=== PATIENT | male | born 1965 | race Caucasian/White ===

== ENCOUNTER → 2021-02-04 13:16 | Outpatient (CLI) | payer BC, SELFPAY ==
[2021-02-04 13:30] LABS: Basophils # 0.1 K/mm3 (0-0.2); Basophils % 1.9 % (0.1-2.0); Eosinophils # 0.2 K/mm3 (0.0-0.4); Eosinophils % 3.6 % (0.1-12.0); Hematocrit 37.3 % (42.0-52.0); Hemoglobin 11.9 g/dL (14.1-18.0); Lymphocytes # 1.6 K/mm3 (0.7-4.5); Mean Corpuscular HGB Conc 31.8 g/dL (31.8-35.4); Mean Corpuscular Hemoglobin 30.7 pg (27.0-31.2); Mean Corpuscular Volume 96.4 fl (80-94); Mean Platelet Volume 8.6 fl (7.4-10.4); Monocytes # 0.5 K/mm3 (0.1-1.0); Neutrophils # 2.9 K/mm3 (1.8-7.8); Neutrophils % 54.4 % (37.0-80.0); Platelet Count 402 K/mm3 (142-424); Red Blood Count 3.87 M/mm3 (4.60-6.20); Red Cell Distribution Width 14.3 % (11.5-17.5); White Blood Count 5.3 K/mm3 (4.8-10.8)
[2021-02-04 13:40] LABS: Chloride 104 mmol/L (98-107); Sodium 138 mmol/L (136-145)
[2021-02-04 13:41] LABS: Potassium 4.8 mmoL/L (3.5-5.1)
[2021-02-04 13:43] LABS: Alanine Aminotransferase 15 U/L (12-78); Albumin/Globulin Ratio 1.9 (1.1-1.8); Alkaline Phosphatase 58 U/L (38-126); Anion Gap 15.8 mEq/L (5-15); Aspartate Amino Transferase 17 U/L (17-59); Bilirubin,Total 0.2 mg/dl (0.2-1.3); Blood Urea Nitrogen 75 mg/dl (9-20); Calcium 8.8 mg/dl (8.4-10.2); Carbon Dioxide 23 mmol/L (22.0-30.0); Chol/HDL Ratio 2.8 (1-3.5); Cholesterol 179 mg/dl (140-200); Estimated Glomerular Filt Rate 10 ml/min (>60); GFR (African American) 12 ML/MIN (>60); Globulin 2.1 g/dL (1.3-3.2); Glucose 79 mg/dl (74-100); HDL Cholesterol 64 mg/dl (40-60); Total Protein,Serum 6.1 g/dl (6.3-8.2); Triglycerides 122 mg/dl (30-150); VLDL Cholesterol 24 mg/dL (0-40)
[2021-02-04 14:09] LABS: Hemoglobin A1C 5.8 % (4.0-6.0)
[2021-02-04 14:10] LABS: Direct LDL Cholesterol 77.69 mg/dL (100-129)
== END ==
PROVIDERS: Visit Provider Family Medicine
DX: R73.09 Other abnormal glucose (principal); Z76.89 Persons encountering health services in other specified circumstances
CPT/HCPCS: 80053; 80061; 83036; 85025

== ENCOUNTER → 2021-02-23 13:43 | Outpatient (CLI) | payer BC, SELFPAY ==
[2021-02-23 14:04] LABS: Basophils # 0.1 K/mm3 (0-0.2); Basophils % 1.8 % (0.1-2.0); Eosinophils # 0.3 K/mm3 (0.0-0.4); Eosinophils % 6.7 % (0.1-12.0); Hematocrit 36.9 % (42.0-52.0); Hemoglobin 12.2 g/dL (14.1-18.0); Lymphocytes # 1.8 K/mm3 (0.7-4.5); Lymphocytes % 38.3 % (10-50); Mean Corpuscular Volume 94.2 fl (80-94); Mean Platelet Volume 8.9 fl (7.4-10.4); Monocytes # 0.4 K/mm3 (0.1-1.0); Monocytes % 7.6 % (1.7-9.3); Neutrophils # 2.2 K/mm3 (1.8-7.8); Neutrophils % 45.7 % (37.0-80.0); Platelet Count 287 K/mm3 (142-424); Red Blood Count 3.92 M/mm3 (4.60-6.20); Red Cell Distribution Width 13.8 % (11.5-17.5); White Blood Count 4.8 K/mm3 (4.8-10.8)
[2021-02-23 16:11] LABS: Intact Parathyroid Hormone 340.6 pg/mL (7.5-53.5)
[2021-02-23 16:32] LABS: Alanine Aminotransferase 14 U/L (12-78); Albumin Level 4.2 g/dl (3.5-5.0); Albumin/Globulin Ratio 1.7 (1.1-1.8); Alkaline Phosphatase 43 U/L (38-126); Anion Gap 17.4 mEq/L (5-15); Aspartate Amino Transferase 23 U/L (17-59); Bilirubin,Total 0.4 mg/dl (0.2-1.3); Calcium 9.2 mg/dl (8.4-10.2); Carbon Dioxide 22 mmol/L (22.0-30.0); Chloride 106 mmol/L (98-107); Estimated Glomerular Filt Rate 8 ml/min (>60); GFR (African American) 10 ML/MIN (>60); Globulin 2.5 g/dL (1.3-3.2); Glucose 88 mg/dl (74-100); Phosphorous 6.5 mg/dl (2.5-4.5); Potassium 4.4 mmoL/L (3.5-5.1); Sodium 141 mmol/L (136-145); Total Protein,Serum 6.7 g/dl (6.3-8.2); Uric Acid 8.4 mg/dl (3.5-8.5)
[2021-02-23 16:47] LABS: 25-OH Vitamin D, Total 32.2 ng/mL (30-100)
[2021-02-23 16:55] LABS: Blood Urea Nitrogen 95 mg/dl (9-20)
[2021-03-03 20:13] LABS: 1,25 Dihydroxy Vitamin D 29 pg/mL (.); 1,25-Dihydroxy, Vitamin D-2 <10 pg/mL (.); 1,25-Dihydroxy, Vitamin D-3 29 pg/mL (.)
== END ==
PROVIDERS: Visit Provider Family Medicine
DX: N17.9 Acute kidney failure, unspecified (principal); I10 Essential (primary) hypertension; E55.9 Vitamin D deficiency, unspecified
CPT/HCPCS: 80053; 82306; 82652; 83970; 84100; 84550; 85025

== ENCOUNTER → 2021-03-02 06:45 | Outpatient (CLI) | payer SELFPAY ==
--- NOTE | 2021-03-02 06:47 | CT_ITS ---
PROCEDURE: CT HEART W CALCIUM SCORE CLINICAL HISTORY: htn/abnl ecg COMPARISON: No exams were available for comparison TECHNIQUE: Axial images obtained with sagittal and coronal reformats. All CT scans at the facility use one or more dose reduction, viz: automated exposure control, ma/kV adjustment per patient size (including targeted exams where dose is matched to indication, i.e. head), or iterative reconstruction technique. FINDINGS: Coronary artery calcium score is 0. No identifiable calcific atherosclerotic plaque with very low cardiovascular disease risk There is minimal thickening of the pericardium anteriorly. There is some scarring or atelectatic change in right lower lobe medially. IMPRESSION: No identifiable calcific atherosclerotic plaque with very low cardiovascular disease risk Dictated by: Austen Jean MD 03/03/2021 19:56 Austen Jean MD in [place] 03/03/2021 19:56
== END ==
PROVIDERS: PCP Family Medicine; Visit Provider Internal Medicine Cardiovascular Disease
DX: Z13.6 Encounter for screening for cardiovascular disorders (principal); I11.9 Hypertensive heart disease without heart failure; N19 Unspecified kidney failure; R60.9 Edema, unspecified
CPT/HCPCS: 75571

== ENCOUNTER → 2021-03-02 06:50 | Outpatient (CLI) | payer BC, SELFPAY ==
--- NOTE | 2021-03-02 | CA_ITS ---
APPROVED REPORT Exam: Pharmacologic Technologist: Rose Mary Yarbrough, Ht: 4 ft 11 in Wt: 198 lbs BSA: 1.84 m2 HR: 81 bpm BP: 141/86 mmHg Rhythm: NSR, RBBB Medical History Medical History: HTN Medications: Amlodipine,,,,, Carvedilol,,,,, TorSEMIDE,,,,, CaKITRIOL,,,,, Allergies: CODEINE Cardiac Risk Factors: HTN Stress Test Details Test: LEXISCAN HR Resting HR: 81 bpm Max Heart Rate (APMHR): 165.332961 bpm Max HR Achieved: 100 bpm Target HR (85% APMHR): 140.776914 bpm % of APMHR: 60.61 Recovery HR: 95 bpm BP Resting BP: 141/86 mmHg Max BP: 144/86 mmHg Recovery BP: 144.0/86.0 mmHg ECG Resting ECG: NSR, RBBB Clinical Exercise duration: 04:02 min Highest Stage Achieved: Stress ECG Conclusion PT HAD SOA, LIGHTHEADED, MALAISE, NO CP. NON-DIAGNOSTIC LEXISCAN STRESS. MYOVIEW IMAGES REPORTED SEPARATELY. Electronically signed by : Nishant Pollard MD 03/03/2021 06:30:44
--- NOTE | 2021-03-02 06:51 | NM_ITS ---
APPROVED REPORT Exam: Nuclear Stress Test Indication: Chest pain, Abnormal EKG, SOB, Fatigue, HTN Patient Location: Outpatient Stress Tech: Rose Mary Yarbrough [place] Tech:Maggie Burton, ARRT, RT (R)(N) Ht: 5 ft 9 in Wt: 199 lbs HR: 81 bpm BP: 141/86 mmHg BSA: 2.06 m2 BMI: 29.3 History: Chest pain, Abnormal EKG, SOB, Fatigue, HTN Procedure: Patient received a 0.4 mg of intravenous Lexiscan, resting heart rate 81 bpm, resting blood pressure 141/86 mmHg, with Lexiscan maximum heart rate achived was 100 bpm which is Less than 85 % of the maximum predicted heart rate and blood pressure was 144/86 mmHg. With Lexiscan, patient denied any complaint of chest pain. Electrocardiogram Resting electrocardiogram shows sinus rhythm right bundle branch block, with Lexiscan there is less than 1.[address] segment depression noted from the baseline EKG. The EKG portion of the Lexiscan is nondiagnostic. Cardiac Stress and Resting SPECT Images: Cardiac Stress and Resting SPECT images were obtained using technetium 99m Myoview 29.8 mCi stress and 9.86 mCi at rest. Gated SPECT analysis of segmental wall motion and calculation of the ejection fraction also done. Cardiac stress and resting SPECT images show reversible ischemia involving the inferior and posterior wall. Computer derived ejection fraction is 43% with moderate inferior and posterior wall hypokinesis, right ventricle is normal size and contractility. Conclusion: 1. The EKG portion of the Lexiscan is nondiagnostic. 2. Scintigraphic evidence of reversible ischemia involving the inferior and posterior wall, computer derived ejection fraction is 43% with segmental wall motion abnormality described above, right ventricle is normal size and contractility. 3. Abnormal Lexiscan Myoview study. Electronically signed by : Nishant Pollard MD 03/03/2021 06:44:00
--- NOTE | 2021-03-02 06:51 | CA_ITS ---
APPROVED REPORT Director Of Accreditation: CORINE Laterality: Bilateral Study Quality: Good Indications: abnl ecg /htn, Renal failure Doppler Spectral Velocity Analysis ECA (R) 109.00/22.60 cm/s ECA (L) 76.60/19.60 cm/s dICA (R) 115.00/36.90 cm/s dICA (L) 70.30/34.60 cm/s Gretel (R) 77.30/42.70 cm/s Gretel (L) 60.90/28.70 cm/s pICA (R) 79.20/17.00 cm/s pICA (L) 31.20/13.20 cm/s dCCA (R) 68.30/27.50 cm/s dCCA (L) 77.40/30.60 cm/s pCCA (R) 90.40/21.10 cm/s pCCA (L) 75.80/24.00 cm/s Vert (R) 36.10/13.40 cm/s Vert (L) 55.40/17.70 cm/s ICA/CCA 1.20 ICA/CCA 0.93 Findings Duplex evaluation demonstrates stenosis of the right proximal internal carotid artery <20% with PSV <140 cm/sec, EDV <100 cm/sec, and IC/CC Ratio <4.0. Duplex evaluation demonstrates stenosis of the left proximal internal carotid artery <20% with PSV <140 cm/sec, EDV <100 cm/sec, and IC/CC Ratio <4.0. Duplex evaluation demonstrates antegrade flow of the bilateral Vertebral Arteries. Conclusion Duplex evaluation demonstrates stenosis of the right proximal internal carotid artery <20% with PSV <140 cm/sec, EDV <100 cm/sec, and IC/CC Ratio <4.0. Duplex evaluation demonstrates stenosis of the left proximal internal carotid artery <20% with PSV <140 cm/sec, EDV <100 cm/sec, and IC/CC Ratio <4.0. Duplex evaluation demonstrates antegrade flow of the bilateral Vertebral Arteries. Incidental finding of multiple small thyroid nodules and a 4cm left throid solid nodule with small central cystic areas, consider dedicated thyroid ultrasound Electronically signed by : Austen Jean MD 03/03/2021 18:57:18
--- NOTE | 2021-03-02 09:30 | HMH.ITSHM ---
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 []TORSEMIDE CARVEDILOL CALCITRIOL AMLODIPINE
== END ==
PROVIDERS: PCP Family Medicine; Visit Provider Internal Medicine Cardiovascular Disease
DX: R42 Dizziness and giddiness (principal); I50.9 Heart failure, unspecified; R94.31 Abnormal electrocardiogram [ECG] [EKG]; I11.0 Hypertensive heart disease with heart failure; N19 Unspecified kidney failure; R60.9 Edema, unspecified
CPT/HCPCS: 78452; 93017; 93880; A9502; J2785

== ENCOUNTER → 2021-03-05 10:33 | Outpatient (CLI) | payer BC, SELFPAY | PROVIDERS: PCP Family Medicine; Visit Provider Internal Medicine Cardiovascular Disease | DX: G47.33 Obstructive sleep apnea (adult) (pediatric) (principal); I11.9 Hypertensive heart disease without heart failure | CPT/HCPCS: 95806 ==

== ENCOUNTER → 2021-03-23 07:59 | Outpatient (CLI) | payer BC, SELFPAY ==
--- NOTE | 2021-03-23 07:59 | CA_ITS ---
APPROVED REPORT EXAM: Comprehensive 2D, Doppler, and color-flow Echocardiogram Dye Box Operator: Lizzette Travis [facility], S Ht: 5 ft 9 in Wt: 200lbs BSA: 2.07 BP: 128/88 mmHg Indications: Abnormal ECG, Congestive Heart Failure, Fatigue, Cardiomyopathy EF 35-40% echo from [facility] 2D Dimensions IVSd 1.32 cm LVEF (Visual) 60.30 % PWd 1.18 cm LVDd 5.27 cm LVDs 3.56 cm M-Mode Dimensions RVDd 2.66 cm (0.9-2.6) LVDd 6.20 cm (3.5-5.7) LVDs 4.52 cm (3.5-5.7) IVSd 1.06 cm (0.6-1.1) PWd 1.18 cm (0.6-1.1) EF (Teich) 51.90% FS 27.10% EDV (Teich) 194.00 mL ESV (Teich) 93.40 mL Conclusion 1. Limited echocardiogram was performed, normal left ventricular size, mild concentric left ventricular hypertrophy, visually estimated ejection fraction 55% with no regional wall motion abnormality. 2. No significant pericardial effusion noted. 3. Inferior vena cava is normal size with normal inspiratory collapse. Electronically signed by : Nishant Pollard MD 03/23/2021 19:09:49
[2021-03-23 09:09] LABS: Chloride 104 mmol/L (98-107); Sodium 144 mmol/L (136-145)
[2021-03-23 09:10] LABS: Potassium 3.9 mmoL/L (3.5-5.1)
[2021-03-23 09:12] LABS: Blood Urea Nitrogen 74 mg/dl (9-20); Estimated Glomerular Filt Rate 10 ml/min (>60); GFR (African American) 12 ML/MIN (>60)
[2021-03-23 09:13] LABS: Anion Gap 13.9 mEq/L (5-15); Calcium 9.5 mg/dl (8.4-10.2); Carbon Dioxide 30 mmol/L (22.0-30.0); Glucose 103 mg/dl (74-100)
== END ==
PROVIDERS: PCP Family Medicine; Visit Provider Internal Medicine Cardiovascular Disease
DX: R42 Dizziness and giddiness (principal); I42.9 Cardiomyopathy, unspecified; I45.10 Unspecified right bundle-branch block; I50.9 Heart failure, unspecified; I11.0 Hypertensive heart disease with heart failure; N17.9 Acute kidney failure, unspecified; R60.9 Edema, unspecified; R94.31 Abnormal electrocardiogram [ECG] [EKG]; N19 Unspecified kidney failure
CPT/HCPCS: 36415; 80048; 86850; 93306

== ENCOUNTER → 2021-04-12 09:18 | Outpatient (CLI) | payer BC, SELFPAY ==
--- NOTE | 2021-04-12 09:18 | US_ITS ---
PROCEDURE: US THYROID CLINICAL INDICATION: 4cm Left solid nodule COMPARISON: No exams were available for comparison FINDINGS: Right lobe: 4.5 x 1.5 x 2.1 cm. Five mm hypoechoic well defined nodule upper pole posteriorly. 6 mm spongiform nodule mid aspect of the right lobe. 6 mm spongiform nodule right lower pole. Left lobe: 5.5 x 3.6 x 5.2 cm. Five by 3 x 5 cm nodule in the left lobe comprising nearly all the left lobe of the thyroid gland. This nodule is mixed cystic and solid, mostly solid containing some small cystic areas. The nodule is isoechoic to thyroid tissue. There is smooth margins. The nodule is wider than tall without obvious calcifications. Isthmus: Unremarkable Additional findings: IMPRESSION: Dominant left-sided thyroid nodule at 5 x 5 cm. This nodules probably benign. However, considering the size, would suggest either short-term follow-up in 6 months or ultrasound-guided FNA for confirmation. Dictated by: Austen Jean MD 04/12/2021 16:47 Austen Jean MD in [place] 04/12/2021 16:47
== END ==
PROVIDERS: PCP Family Medicine; Visit Provider Family Medicine
DX: E04.1 Nontoxic single thyroid nodule (principal)
CPT/HCPCS: 76536

== ENCOUNTER → 2021-06-01 13:35 | Outpatient (CLI) | payer BC, SELFPAY ==
[2021-06-01 15:07] LABS: Thyroid Stimulating Hormone 1.76 uIU/mL (0.465-4.68)
== END ==
PROVIDERS: Visit Provider Otolaryngology
DX: E04.9 Nontoxic goiter, unspecified (principal)
CPT/HCPCS: 36415; 84443

== ENCOUNTER → 2021-06-07 08:50 | Outpatient (CLI) | payer BC, SELFPAY ==
--- NOTE | 2021-06-07 08:51 | US_ITS ---
FINAL REPORT CLINICAL HISTORY: .fna lt thyroid nodule performed by Christina nelson FINDINGS: ULTRASOUND GUIDED THYROID BIOPSY HISTORY: Left thyroid nodule/mass. ATTENDING PHYSICIAN: Dr. Coe PHYSICIAN [employer] COACH: Christina Watkins PA-C TECHNIQUE: Informed consent was obtained from the patient. A timeout procedure was performed prior to beginning. Limited sonographic evaluation of thyroid gland was performed to localize lesion of interest. The neck was prepped in a routine sterile fashion and locally anesthetized with 1% lidocaine. FNA was performed with 25-gauge needle under direct sonographic visualization. 4 passes of the left thyroid mass were made. Cytology is pending. Procedure was well tolerated. CONCLUSION: 1. Technically successful thyroid fine needle aspiration. Reviewed, Interpreted and Dictated by Matt Coe MD Transcribed by Christina Watkins PA-C Authenticated by Matt Coe MD on 06/07/2021 12:17:48 PM [facility]
== END ==
PROVIDERS: PCP Family Medicine; Visit Provider Otolaryngology
DX: E04.9 Nontoxic goiter, unspecified (principal)
CPT/HCPCS: 10005; 76536

== ENCOUNTER → 2021-06-09 21:20 | Outpatient (CLI) | payer BC, SELFPAY | PROVIDERS: PCP Family Medicine; Visit Provider Nurse Practitioner Family | DX: G47.33 Obstructive sleep apnea (adult) (pediatric) (principal); R06.83 Snoring | CPT/HCPCS: 95810 ==

== ENCOUNTER → 2021-06-29 11:17 | Outpatient (CLI) | payer BC, SELFPAY | PROVIDERS: PCP Family Medicine; Visit Provider Internal Medicine Gastroenterology | DX: Z01.812 Encounter for preprocedural laboratory examination (principal); Z11.52 Encounter for screening for COVID-19; Z12.11 Encounter for screening for malignant neoplasm of colon | CPT/HCPCS: C9803; U0003; U0005 ==

== ENCOUNTER 2021-07-01 09:06 | Day surgery (SDC) | payer BC, SELFPAY ==
[2021-06-29 09:20] VITALS: BMI 32.1
[2021-07-01] VITALS (7 sets, daily range): BP systolic 96–120; BP diastolic 64–84; PULSE 72–87; RESP 16–18; TEMP 36.3–36.8; O2SAT 93–98
--- NOTE | 2021-07-01 09:46 | P.PN_ITS ---
[facility] Anesthesia Checklist - Patient Identification Patient Identification: Arm Band - Structural Data Admitted From: Home Planned Operative Procedure/s: Colonoscopy Consent for Planned Operative Procedure(s) Verified: Yes - NPO Status Verified Time NPO: 05:30 (Prep) - Airway Assessment C-Spine Mobility Assessed: Yes TMJ Mobility Assessed: Yes Dentition: Poor Dentition (All loose. Patienmt understands risk of damage) - Neurological Assessment Level of Consciousness: Awake Hx Seizures: No Numbness or tingling in extremities: No - Anesthesia Plan Anesthesia Risk discussed: Yes Anesthesia Plan: Verified ASA Class: III Anesthesia Type: MAC [facility] History I have reviewed the patient's past medical history: Yes Medical History: Reports:: Anxiety, Cancer (skin/ thyroid), Cardiomyopathy, Congestive Heart Failure, Coronary Artery Disease, Hypertension, Myocardial Infarction, Renal Disease, Renal Insufficiency Denies:: Diabetes Mellitus Type 1, Diabetes Mellitus Type 2, Internal Pacemaker, MRSA *Have you ever received a pneumonia vaccine?: Yes *Have you received a flu vaccine this season?: Yes Other Medical History: Reports: Arthritis, Sinus Problems Anesthesia experience/problems:: None Laterality Cases: Right: Arthroscopy Knee Other Surgeries: Yes: No Previous Surgery, Other. No: Pacemaker Amputation: No Fractures: No - *Social History Last grade of school completed: 11th or 12th Smoking Status: Never smoker Tobacco Type: cigarettes Alcohol Intake: never Substance Use Type: denies use *Occupational Status:: unemployed Housing: house Household Members: spouse *Travel in the last 8 weeks: None - Psychiatric History Pschychiatric History:: Reports:: Anxiety Family Hx:: Kidney Disease, Hypertension, Coronary Artery Disease, Diabetes
--- NOTE | 2021-07-01 10:49 | HMH.SCOPE ---
- Procedure: Date: 07/01/21 Patient Date of :: 1965 Procedure Performed:: Screening colonoscopy Indications:: Colon cancer screening Performing Provider:: Radha Wayne MD Referring Provider:: Denis Jackson Sedation:: Propofol Procedure:: After placing the patient in the left lateral decubitus position, the colonoscopy was gently inserted into the rectum and under direct visualization advanced to the cecum which was identified by transillumination in the right lower quadrant, identification of the ileocecal valve, appendiceal orifice, and cecal strap. Color, texture, mucosa, and anatomy of the colon were carefully examined with the scope. Findings:: Anal canal: normal Rectum: normal Sigmoid colon: 1 cm sigmoid polyps, removed with hot snare. Descending colon: normal without polyps or inflammatory changes Splenic flexure: normal Transverse colon: normal without polyps or inflammatory changes Hepatic flexure: normal Ascending colon: normal without polyps or inflammatory changes Cecum: Large 3+cm villous mass arising from the ileocecal valve region noted. Multiple biopsies obtained Terminal ileum: not visualized Impression: Large ileocecal mucosal mass Adenomatous sigmoid polyp Specimens:: Biopsies from the cecal mass Sigmoid polyp Recommendations:: Surgical resection of the cecal mass Repeat colonoscopy exam in ONE year after resection. Complications:: None Estimated blood obtained (mL): 0 Comment:: Dr. Olivia Jackson notified of the preliminary findings
== END 2021-07-01 11:35 | disposition home or self-care (01) ==
LOC: OUTP 09:09
PROVIDERS: PCP Family Medicine; Visit Provider Internal Medicine Gastroenterology
PROC: 0DJD8ZZ Inspection of Lower Intestinal Tract, Via Natural or Artificial Opening Endoscopic (ICD-10-PCS; CPT 45378; principal; 2021-07-01 10:30)
DX: Z12.11 Encounter for screening for malignant neoplasm of colon (principal); K63.5 Polyp of colon; I25.10 Atherosclerotic heart disease of native coronary artery without angina pectoris; I10 Essential (primary) hypertension; I25.2 Old myocardial infarction; F41.9 Anxiety disorder, unspecified; Z85.850 Personal history of malignant neoplasm of thyroid; Z85.828 Personal history of other malignant neoplasm of skin; N28.9 Disorder of kidney and ureter, unspecified; M19.90 Unspecified osteoarthritis, unspecified site; Z83.3 Family history of diabetes mellitus; Z82.49 Family history of ischemic heart disease and other diseases of the circulatory system; Z84.1 Family history of disorders of kidney and ureter
CPT/HCPCS: 45385; 45380

== ENCOUNTER → 2021-07-30 11:05 | Outpatient (CLI) | payer MEDICARE, BC, SELFPAY | PROVIDERS: Visit Provider Surgery | DX: Z01.812 Encounter for preprocedural laboratory examination (principal); Z20.822 Contact with and (suspected) exposure to COVID-19 | CPT/HCPCS: C9803; U0003; U0005 ==

== ENCOUNTER → 2021-10-27 15:04 | Outpatient (CLI) | payer MEDICARE, BC, SELFPAY ==
--- NOTE | 2021-10-27 15:05 | US_ITS ---
FINAL REPORT CLINICAL HISTORY: hx goiter FINDINGS: THYROID ULTRASOUND The right lobe of the thyroid measures 4.4 x 2.2 x 1.5 cm. The left lobe of the thyroid measures 5.8 x 5.0 x 3.3 cm. In the right lobe of the thyroid are 3 TI-RADS 4 solid hypoechoic nodules. Nodule 1 on the right measures 3 x 4 x 3 mm. Nodule 2 on the right measures 5 x 5 x 4 mm. Nodule 3 on the right measures 6 x 6 x 4 mm. Dominant left lobe nodule is predominantly solid and isoechoic measuring 48 x 49 x 32 mm consistent with a TI-RADS 3. This is stable as compared to prior exam dated April 12, 2021. IMPRESSION: Stable nodules as described. No follow-up recommended. Reviewed, Interpreted and Dictated by Antelmo Alvarenga III, MD Transcribed by Oscar Lombardi Authenticated and [facility]
== END ==
PROVIDERS: PCP Family Medicine; Visit Provider Otolaryngology
DX: E04.1 Nontoxic single thyroid nodule (principal)
CPT/HCPCS: 76536

== ENCOUNTER → 2022-01-28 14:56 | Outpatient (CLI) | payer OTHER, BC, SELFPAY ==
[2022-01-30 09:09] LABS: CEA 2.6 ng/mL (0.0-4.7)
== END ==
PROVIDERS: PCP Family Medicine; Visit Provider Family Medicine
DX: C18.9 Malignant neoplasm of colon, unspecified (principal)
CPT/HCPCS: 36415; 82378

== ENCOUNTER → 2022-05-17 12:36 | Outpatient (CLI) | payer MEDICARE, BC, SELFPAY ==
--- NOTE | 2022-05-17 12:37 | US_ITS ---
FINAL REPORT CLINICAL HISTORY: hx nodules COMPARISON: March 2021; October 2021 FINDINGS: THYROID ULTRASOUND The right lobe of the thyroid measures 5.1 x 1.9 x 1.3 cm. The left lobe of the thyroid measures 6.4 x 5.4 x 3.9 cm. The parenchyma shows normal echogenicity. There is a dominant isoechoic mass in the left lobe of the thyroid measuring 5.4 x 5.0 x 3.4 cm that is unchanged as compared to the prior exam. There are subcentimeter hypoechoic nodules in the right lobe of the thyroid compatible with TI-RADS 4 that are unchanged. IMPRESSION: Stable dominant left thyroid mass compatible with TI-RADS 3 with stable subcentimeter right TI-RADS 4 nodules. Recommend 12 month follow-up presuming the left lobe mass has not had prior FNA. Reviewed, Interpreted and Dictated by Hilario Ren MD Transcribed by Oscar Lombardi Authenticated and [facility]
== END ==
PROVIDERS: PCP Family Medicine; Visit Provider Otolaryngology
DX: E04.1 Nontoxic single thyroid nodule (principal)
CPT/HCPCS: 76536

== ENCOUNTER → 2022-05-24 14:05 | Outpatient (CLI) | payer MEDICARE, BC, SELFPAY ==
--- NOTE | 2022-05-24 14:05 | CT_ITS ---
FINAL REPORT TECHNIQUE: Axial images were obtained from the lung apex to the mid abdomen by computed tomography. Coronal reformatted images were obtained. This study was performed with techniques to keep radiation doses as low as reasonably achievable, (ALARA). Individualized dose reduction techniques using automated exposure control or adjustment of mA and/or kV according to the patient''s size were employed. CLINICAL HISTORY: . transplant clearance FINDINGS: There is a left thyroid mass measuring 5 cm. There is no axillary adenopathy. There is no hilar or mediastinal adenopathy. Heart size is normal. There is no pericardial or pleural effusion. Images through the upper abdomen show a partially collapsed gallbladder. There is a small hyperdense cyst or calcification in the upper pole the left kidney. There is mild scarring. No suspicious infiltrate or nodule is identified. IMPRESSION: No acute process. Small hyperdense cyst or calcification in the upper pole the left kidney. 5 cm left thyroid mass. Consider thyroid ultrasound although favor this to represent goiter. Reviewed, Interpreted and Dictated by Antelmo Alvarenga III, MD Transcribed by Oscar Lombardi Authenticated and [facility]
== END ==
PROVIDERS: PCP Family Medicine; Visit Provider Family Medicine
DX: I50.9 Heart failure, unspecified; I11.0 Hypertensive heart disease with heart failure
CPT/HCPCS: 71250

== ENCOUNTER 2022-06-22 09:45 | Day surgery (SDC) | payer MEDICARE, BC, SELFPAY ==
[2022-05-31 14:02] VITALS: BMI 33.4
[2022-06-22] VITALS (7 sets, daily range): BP systolic 101–142; BP diastolic 55–93; PULSE 65–79; RESP 15–18; TEMP 36.8–37; O2SAT 91–98
--- NOTE | 2022-06-22 10:07 | P.PN_ITS ---
[facility] Disclaimer: The information contained in this section may have been updated after the patient was seen, as this information can be updated by other users. Medical History Abnormal EKG Cardiomyopathy Dizziness History of colon cancer Right bundle branch block Status post peritoneal dialysis Thyroid nodule Surgical History History of colon surgery Hx of knee surgery Family History Other Family history of diabetes mellitus type II Family history of hypertension Peritoneal dialysis catheter in place Social History Smoking Status: Former smoker alcohol intake: never substance use type: denies use current occupational status: disabled Travel in the last 8 weeks: Inside the [place] household members: spouse housing: house lives independently: Yes marital status: education level: high school service: Yes caffeine: Yes special jonna needs: No agree to transfusion: No do you feel safe at home: Yes victim of physical abuse: No victim of emotional abuse: No victim of sexual abuse: No would you like helpful sources: No [facility] Anesthesia Checklist Patient Identification Patient Identification: Arm Band and Verbal (Name & ) Structural Data Admitted From: Home Planned Operative Procedure/s: Colonoscopy Consent for Planned Operative Procedure(s) Verified: Yes NPO Status Verified Time NPO: 00:00 Airway Assessment C-Spine Mobility Assessed: Yes TMJ Mobility Assessed: Yes Dentition: Poor Dentition Neurological Assessment Level of Consciousness: Awake Hx Seizures: No Numbness or tingling in extremities: No Anesthesia Plan Anesthesia Risk discussed: Yes Anesthesia Plan: Verified ASA Class: IV Anesthesia Type: MAC
--- NOTE | 2022-06-22 10:47 | P.PCN_ITS ---
Procedure: Date: 06/22/22 Patient Date of :: 1965 Procedure Performed:: Colonoscopy Indications:: The patient had a colonoscopy 1 year ago that reported to have a ileocecal valve mass. The patient had surgical resection at the [facility]. The patient reports that the mass lesion was found to be colon cancer. The patient has ESRD and is being listed for renal transplant Performing Provider:: Ronald Johnson MD Referring Provider:: Denis Spicer MD Sedation:: See RN records Procedure:: After placing the patient in the left lateral decubitus position, the colonoscopy was gently inserted into the rectum and under direct visualization advanced to the surgical anastamosis. Color, texture, mucosa, and anatomy of the colon were carefully examined with the scope. Findings:: Anal canal: normal Rectum: normal Sigmoid colon: Diverticulosis. Four polyps ranging 5-10 mm in size. Removed with cold snare and hot snare polypectomy. Descending colon: normal without polyps or inflammatory changes Splenic flexure: normal Transverse colon: Polyp 5 mm in size. Removed with hot snare polypectomy Surgical changes of right hemicolectomy Impression: Polyps of sigmoid colon and transverse colon Diverticulosis Surgical changes of right hemicolectomy Recommendations:: Await pathology results Repeat colonoscopy in 1 year Complications:: None Estimated blood obtained (mL): 0
== END 2022-06-22 11:27 | disposition home or self-care (01) ==
PROVIDERS: PCP Family Medicine; Visit Provider Internal Medicine
PROC: 0DJD8ZZ Inspection of Lower Intestinal Tract, Via Natural or Artificial Opening Endoscopic (ICD-10-PCS; CPT 45378; principal; 2022-06-22 11:00)
DX: Z12.11 Encounter for screening for malignant neoplasm of colon (principal); D12.3 Benign neoplasm of transverse colon; D12.5 Benign neoplasm of sigmoid colon; N18.6 End stage renal disease; K57.30 Diverticulosis of large intestine without perforation or abscess without bleeding; Z79.899 Other long term (current) drug therapy
CPT/HCPCS: 45385; 88305; J2704

== ENCOUNTER → 2022-09-05 15:02 | Outpatient (CLI) | payer MEDICARE, BC, SELFPAY ==
[2022-09-07 11:30] LABS: CEA 3.2 ng/mL (0.0-4.7)
== END ==
PROVIDERS: PCP Family Medicine; Visit Provider Family Medicine
DX: Z85.048 Personal history of other malignant neoplasm of rectum, rectosigmoid junction, and anus (principal)
CPT/HCPCS: 36415; 82378

== ENCOUNTER → 2022-09-13 10:26 | Outpatient (POV) | payer MEDICARE, BC, SELFPAY | PROVIDERS: Visit Provider Dermatology | DX: Z00.00 Encounter for general adult medical examination without abnormal findings (principal) ==

== ENCOUNTER → 2022-11-09 12:40 | Outpatient (CLI) | payer MEDICARE, BC, SELFPAY ==
--- NOTE | 2022-11-09 12:40 | US_ITS ---
FINAL REPORT CLINICAL HISTORY: follow up on nodules COMPARISON: 05/17/2022 FINDINGS: Limited sonographic images of the thyroid were obtained. The right lobe of the thyroid measures 4.7 x 1.3 x 2.1 cm. There is a stable, solid and isoechoic nodule measuring 5 x 3 x 3 mm consistent with TI-RADS category 3. There is a stable, solid and hypoechoic nodule measuring 4 x 4 x 4 mm consistent with TI-RADS category 4. In addition, there is a stable solid and hypoechoic nodule measuring 7 x 7 x 5 mm consistent with TI-RADS category 4. The left lobe of the thyroid measures 5.9 x 4.4 x 6.0 cm. There is a dominant mass measuring 54 x 58 x 33 mm, previously measured 50 x 50 x 33 mm. This has probably not significantly changed and appears mostly solid and isoechoic consistent with TI-RADS category 3. Other small nodules are visually stable. The isthmus measures 1.08 cm. IMPRESSION: Probably stable left lobe mass. Recommend ultrasound-guided FNA if not already performed. Follow-up ultrasound may also be helpful. Reviewed, Interpreted and Dictated by Antelmo Alvarenga III, MD Transcribed by Taylor Garcia Authenticated and [facility]
== END ==
PROVIDERS: PCP Family Medicine; Visit Provider Otolaryngology
DX: E04.1 Nontoxic single thyroid nodule (principal)
CPT/HCPCS: 76536

== ENCOUNTER → 2022-12-05 07:40 | Outpatient (CLI) | payer MEDICARE, BC, SELFPAY ==
--- NOTE | 2022-12-05 07:40 | US_ITS ---
FINAL REPORT CLINICAL HISTORY: left thyroid fna -- Catarino SMITH FINDINGS: ULTRASOUND GUIDED THYROID BIOPSY HISTORY: Left thyroid mass. TECHNIQUE: Informed consent was obtained from the patient. A timeout procedure was performed prior to beginning. Limited sonographic evaluation of thyroid gland was performed to localize lesion of interest. The neck was prepped in a routine sterile fashion and locally anesthetized with 1% lidocaine. FNA was performed with 25-gauge needle under direct sonographic visualization. 4 passes were made. Cytology is pending. Procedure was well tolerated. CONCLUSION: 1. Technically successful thyroid fine needle aspiration of a left thyroid mass. Reviewed, Interpreted and Dictated by Hilario Ren MD Transcribed by Christina Watkins PA-C Authenticated and [facility]
== END ==
PROVIDERS: PCP Family Medicine; Visit Provider Nurse Practitioner
DX: E04.1 Nontoxic single thyroid nodule (principal)
CPT/HCPCS: 10005; 76536; 88173; 88305

== ENCOUNTER 2023-06-21 12:17 | Outpatient (CLI) | payer MEDICARE, SELFPAY ==
--- NOTE | 2023-06-21 12:17 | US_ITS ---
FINAL REPORT CLINICAL HISTORY: thyroid nodules COMPARISON: 11/09/2022 FINDINGS: THYROID ULTRASOUND: The right lobe of the thyroid gland measures 4.5 x 1.3 x 2.3 cm in size. There are scattered nodules present, all less than 1 cm in size, nonspecific. None of these are significantly changed since the prior MRI of October 2022. The left lobe of the thyroid measures 5.8 x 4 x 5.6 cm in size. There is a dominant mass in the lower pole of the left lobe of the thyroid measuring 4.8 x 3.5 x 4.7 cm in size. This i mass is cystic and solid, isoechoic. This mass was previously 5.9 x 5.4 x 3.3 cm in size. No new left lobe mass is seen. The isthmus is normal in appearance and measures 8.6 mm in thickness. IMPRESSION: Dominant mass lower pole left kidney slightly smaller than noted on the prior ultrasound of October 2022. There are scattered other less than 1 cm nodules predominantly in the right lobe, which are unchanged since the prior ultrasound. Reviewed, Interpreted and Dictated by Antelmo Alvarenga III, MD Transcribed by Malena Shaver Authenticated and [facility]
== END 2023-06-21 23:59 ==
LOC: RAD 12:17
PROVIDERS: PCP Family Medicine; Visit Provider Nurse Practitioner
DX: E04.1 Nontoxic single thyroid nodule (principal)
CPT/HCPCS: 76536

== ENCOUNTER 2023-12-06 10:19 | Outpatient (CLI) | payer MEDICARE, SELFPAY ==
[2023-12-08 14:23] LABS: CEA 2.6 ng/mL (0.0-4.7)
== END 2023-12-06 23:59 | disposition home or self-care (01) ==
LOC: LAB.DROPOF 12-07 10:20
PROVIDERS: PCP Family Medicine; Visit Provider Family Medicine
DX: Z85.038 Personal history of other malignant neoplasm of large intestine (principal)
CPT/HCPCS: 82378

== ENCOUNTER 2023-12-20 12:38 | Outpatient (CLI) | payer MEDICARE, SELFPAY ==
--- NOTE | 2023-12-20 12:39 | US_ITS ---
FINAL REPORT CLINICAL HISTORY: 6 month f/u thyroid nodules COMPARISON: 06/21/2023 FINDINGS: Sonographic images of the thyroid gland were obtained. The right thyroid lobe measures 45 mm in length. The left thyroid lobe measures 59 mm in length. The thyroid isthmus measures 4 mm. The echogenicity is normal. There are multiple small nodules in the right thyroid lobe which visually are not significantly changed. Dominant mass in the left thyroid lobe measures 52 mm and previously measured 48 mm, TR 3. This is visually stable. IMPRESSION: Visually stable bilateral thyroid nodules as described. Additional follow-up recommended in 6 months per TI-RADS criteria. Reviewed, Interpreted and Dictated by Antelmo Alvarenga III, MD Transcribed by Kathrine Vitale Authenticated and [facility]
== END 2023-12-20 23:59 | disposition home or self-care (01) ==
LOC: RAD 12:39
PROVIDERS: PCP Family Medicine; Visit Provider Nurse Practitioner
DX: E04.2 Nontoxic multinodular goiter (principal)
CPT/HCPCS: 76536

== ENCOUNTER 2024-04-26 12:50 | Outpatient (CLI) | payer MEDICARE, SELFPAY ==
[2024-04-26 19:04] LABS: T4 (Thyroxine) 6.2 ug/dl (5.53-11.0)
[2024-04-26 19:18] LABS: Thyroid Stimulating Hormone 2.18 uIU/mL (0.465-4.68)
== END 2024-04-26 23:59 | disposition home or self-care (01) ==
LOC: LAB.DROPOF 04-27 09:26
PROVIDERS: PCP Family Medicine; Visit Provider Family Medicine
DX: E11.9 Type 2 diabetes mellitus without complications (principal); E04.2 Nontoxic multinodular goiter
CPT/HCPCS: 83036; 84436; 84443

== ENCOUNTER 2024-06-24 09:42 | Outpatient (CLI) | payer MEDICARE, SELFPAY ==
--- NOTE | 2024-06-24 09:42 | US_ITS ---
FINAL REPORT TECHNIQUE: Real-time grayscale and color ultrasound of the thyroid was performed. CLINICAL HISTORY: history of thyroid nodules bilaterally COMPARISON: 12/20/2023 FINDINGS: The thyroid gland measures 4.3 x 1.2 x 2.5 cm on the right and 6.5 x 4.2 x 5.9 cm on the left. The isthmus measures 0.5 cm. The parenchyma is unremarkable . Nodules: Subcentimeter hypoechoic TR 4 lesions in the superior right lobe of the thyroid are not significantly changed. The largest measures 0.7 cm. Dominant mass in the left lobe causing left lobe enlargement. This mass is hyperechoic, TR 3, and measures 5.5 x 4.8 x 3.6 cm. It previously measured 5.3 x 5.2 x 3.1 cm and is not significantly changed. IMPRESSION: Stable dominant TR 3 mass in the left lobe of the thyroid. Continue 12-month follow-up per TI-RADS criteria Reviewed, Interpreted and Dictated by Hilario Ren MD Transcribed by Kathrine Vitale Authenticated and [facility]
== END 2024-06-24 23:59 | disposition home or self-care (01) ==
LOC: RAD 09:42
PROVIDERS: PCP Family Medicine; Visit Provider Nurse Practitioner
DX: E04.2 Nontoxic multinodular goiter (principal)
CPT/HCPCS: 76536

== ENCOUNTER 2024-07-01 10:25 | Outpatient (CLI) | payer MEDICARE, SELFPAY ==
[2024-07-01 11:18] LABS: Alanine Aminotransferase 29 U/L (12-78); Albumin Level 4.5 g/dl (3.5-5.0); Albumin/Globulin Ratio 2.4 (1.1-1.8); Alkaline Phosphatase 89 U/L (38-126); Aspartate Amino Transferase 24 U/L (17-59); Bilirubin,Total 0.9 mg/dl (0.2-1.3); Blood Urea Nitrogen 17 mg/dl (9-20); Calcium 10.3 mg/dl (8.4-10.2); Carbon Dioxide 33 mmol/L (22.0-30.0); Chloride 101 mmol/L (98-107); Estimated Glomerular Filt Rate 77 ml/min (>60); GFR (African American) 93 ML/MIN (>60); Globulin 1.9 g/dL (1.3-3.2); Glucose 117 mg/dl (74-100); Sodium 142 mmol/L (136-145); Total Protein,Serum 6.4 g/dl (6.3-8.2)
[2024-07-01 11:30] LABS: Intact Parathyroid Hormone 243.3 pg/mL (7.5-53.5)
== END 2024-07-01 23:59 | disposition home or self-care (01) ==
LOC: LAB 10:26
PROVIDERS: PCP Family Medicine; Visit Provider Nurse Practitioner
DX: E04.2 Nontoxic multinodular goiter (principal)
CPT/HCPCS: 36415; 80053; 83970

== ENCOUNTER 2024-08-05 10:33 | Outpatient (CLI) | payer MEDICARE, SELFPAY ==
--- NOTE | 2024-08-05 10:55 | NM_ITS ---
FINAL REPORT CLINICAL HISTORY: poss adenoma ELEVATED PARATHYROID HORMONE 10:45AM 21.8 MCI TC SESTAMIBI COMPARISON: None FINDINGS: 21.8 mCi Technetium 99-M Sestamibi was administered. Planar imaging was performed early and two-hour delayed of the neck and upper thorax. Early imaging shows physiologic uptake within the upper neck involving the salivary glands and lower neck involving the thyroid gland. On delayed imaging there is no abnormal retained activity in the lower neck or mediastinum to localize parathyroid adenoma. IMPRESSION: No scintigraphic evidence of parathyroid adenoma. Reviewed, Interpreted and Dictated by Adelia Hawkins MD Transcribed by Malena Shaver Authenticated and [facility]
[2024-08-05] MEDS: ISO TC99M (SESTAMIBI);1 DOSE VIAL IV (10:56)
[2024-08-05] MEDS: SODIUM CHLORIDE 0.9% 10ML SYR (RAD ONLY) 10 ML IV (10:56)
== END 2024-08-05 23:59 | disposition home or self-care (01) ==
LOC: RAD 10:33
PROVIDERS: PCP Family Medicine; Visit Provider Nurse Practitioner
DX: E04.2 Nontoxic multinodular goiter (principal)
CPT/HCPCS: 78070; A9500

== ENCOUNTER 2025-02-05 11:51 | Outpatient (CLI) | payer MEDICARE, SELFPAY ==
--- OUTSIDE RECORDS SUMMARY | 2024-12-11 15:40 | XMS_ITS | Encounter Summary ---
Author Organization [facility] Address [facility] [place] [address] Care Team Providers Care Sociology Professor Name Role Phone Denis Jackson MD Primary Care Provider Waylon Snow RN [facility] Source Comments This information has been disclosed to you from confidential records protectfrom disclosure by state law. You shall make no further disclosure of thisinformation without the specific, written, and informed release of theindividual to whom it pertains, or as otherwise permitted by law. A generalauthorization for the release of medical or other information is not sufficientfor the purposes of the release of HIV test results or diagnoses. [id number] Health Reason for Visit * Reason Comments Hepatitis B carrier Encounter Details Date Type Department Care Team (Latest Contact Info) Description 12/11/2024 3:40 PM EDT Office Visit [facility] [address] [id number] Courtney Chase, MANAGER ASSESSMENT [address] [place] [address] Hepatitis B carrier (CMS-HCC) (Primary Dx) Social History Tobacco Use Types Packs/Day Years Used Date Smoking Tobacco: Former Cigarettes 1.5 30 1 - 2014 Smokeless Tobacco: Former Chew Quit: 1995 Alcohol Use Standard Drinks/Week Comments Yes 0 (1 standard drink = 0.6 oz pur e alcohol) Rarely Utilities Answer Date Recorded In the past 12 months has [employer] electric, gas, oil, or water company threatened to shut off services in your home? No 01/01/2024 AUDIT-C Answer Date Recorded Q1: How often do you have a drink containing alcohol? Never 01/01/2024 Q2: How many drinks containi ng alcohol do you have on a typical day when you are drinking? Patient does not drink 4 Q3: How often do you have si x or more drinks on one occasion? Never 01/01/2024 PHQ-2 Answer Date Recorded PHQ-2 Total Score 0 08/20/2024 Hunger Vital Sign Answer Date Recorded Within the past 12 months, y ou worried that your food would run out before you got the money to buy more. Never true 01/01/20 24 Within the past 12 months, t he food you bought just didn't last and you didn't have money to get more. Never true 01/01/2024 PRAPARE - Transportation Answer Date Re corded In the past 12 months, has l ack of transportation kept you from medical appointments or from getting medications? No 12/13 In the past 12 months, has l ack of transportation kept you from meetings, work, or from getting things needed for daily living? No 01/01/2024 Housing Stability Vital Sign Answer Terence e Recorded In the last 12 months, was t here a time when you were not able to pay the mortgage or rent on time? No 07/06/2023 In the last 12 months, how many places have you lived? 2 07/06/2023 In the last 12 months, was t here a time when you did not have a steady place to sleep or slept in a [place] (including now)? No 07/06/2023 Housing Stability Vital Sign Answer Terence e Recorded In the last 12 months, was t here a time when you were not able to pay the mortgage or rent on time? No 01/01/2024 In the past 12 months, how m any times have you moved where you were living? 0 01/01/2024 At any time in the past 12 m [facility], were you homeless or living in a [place] facility (including now)? No 01/01/2024 Yearly Questionnaire Answer Date Record ed Do you need any assistance w ith obtaining housing, meals, medication, transportation or medical equipment? No 08/20 Assistance needed for: Not on file Yearly Questionnaire Answer Date Record ed Do you need any assistance w ith obtaining housing, meals, medication, transportation or medical equipment? No 08/20 Assistance needed for: Not on file 5 Yearly Questionnaire Answer Date Record ed Do you need any assistance w ith obtaining housing, meals, medication, transportation or medical equipment? No 08/20 Assistance needed for: Not on file 5 Sex and Gender Information Value Date Recorded Sex Assigned at Male 04/18/2023 4:44 AM EST Legal Sex Male 3:46 PM EDT Gender Identity Male 04/18/2023 4:44 AM EST Sexual Orientation Not on file documented as of this encounter Last Filed Vital Signs Vital Sign Reading Time Taken Comments Blood Pressure 126/84 12/11/2024 3:53 PM EDT Pulse - - Temperature - - Respiratory Rate - - Oxygen Saturation - - Inhaled Oxygen Concentration - - Weight 102.7 kg (226 lb 6.4 oz) 12/11/2024 3:53 PM EDT Height 175.3 cm (5' 9 ) 12/11/2024 3:53 PM EDT Body Mass Index 33.43 12/11/2024 3:53 PM EDT documented in this encounter Patient Instructions * Patient Instructions* Courtney Chase CNP - 12/11/2024 3:40 PM EDT Labs every 3 months. Follow up in 6 months. documented in this encounter Progress Notes * Courtney Chase CNP - 12/11/2024 3:40 PM EDT Chief Complaint Patient presents with Hepatitis B carrier History of Present Illness: Tam Guerrero is a 59 y.o. male s/p kidney transplant 01/26/2023 with hepatitis B MORRIS positive and Hepatitis B core Ab positive donor who returns for a follow up visit accompanied by his . Last seen May 2024. Co-morbidities include CHF, colon cancer and parathyroid nodule. ESRD d/t hypertension.Had peritoneal/hemodialysis prior to transplant. HCV MORRIS negative. Prior to transplant HBcTAb non reactive, HBsAb reactive (17.10), HBsAg non reactive. HCV PCR not detected. HIVnon reactive. Family history of HTN, kidney disease. HBV: HBV ND with normal liver enzymes 06/10/2024. tenofovir alafenamide (Vemlidy) was stopped May 2024 as per kidney transplant protocol. ETOH never heavy use and now very rare. Last drink was several years ago. 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 C1/C2 requiring fusion (01/01/2024) (pseudomonas) and reactivation of Lyme Disease. care home antibiotics. Now feeling better. Taking Ozempic and has been losing weight down 13 lbs from June. A1C 5.7% in July. Denies jaundice, dark urine, light stool, fever, hematochezia, hematemesis, melena, edema. Testing: -abdominal CT 07/19/2021: unremarkable liver. -APRI= . 0.37 APRI score greater than 0.7 has a sensitivity of 77% and specificity of 72% for predicting significant hepatic fibrosis. FIB 4= 1.04. Using a lower cutoff value of 1.45, a FIB-4 score <1.45 had a negative predictive value of 90% for advanced fibrosis (Otilia fibrosis score 4-6 which includes early bridging fibrosis to cirrhosis). In contrast, a FIB-4 >3.25 would have a 97% specificity and a positive predictive value of 65% for advanced fibrosis. Wt Readings from Last 3 Encounters: 12/11/24 (!) 226 lb 6.4 oz (102.7 kg) 12/06/24 (!) 229 lb (103.9 kg) 11/18/24 (!) 229 lb (103.9 kg) Review of Systems The following portions of the patient history were reviewed and updated as appropriate: allergies, current medications, family, medical, surgical and social history and problem list. A comprehensive Review of Systems was completed and was negative other than what has been noted in the HPI. Past Medical History: He has a past medical history of Allergy, Anxiety, Arthritis, Cancer (CMS-HCC), Cancer of ileocecalvalve (CMS-HCC), Cataract (2021), CHF (congestive heart failure) ([facility] [place]), Chronic kidney disease,Colorectal polyps, CPAP (continuous positive airway pressure) dependence, Diabetes mellitus ([facility] [place]), ESRD (end stage renal disease) on dialysis ([facility] [place]), Hearing impairment, Hypercholesteremia, Hypertension, Lyme disease, NSTEMI (non-ST elevated myocardial infarction) ([facility] [place]), Obesity (BMI 30-39.9), ROSALIO (obstructive sleep apnea), Pulmonary HTN ([facility] [place]), SCC (squamous cell carcinoma), and Thyroid nodule. Medications: Current Outpatient Medications: acetaminophen (TYLENOL) 325 MG tablet, Take 2 tablets (650 mg total) by mouth every 4 hours as needed., Disp: 100 tablet, Rfl: 3 alcohol swabs PadM, Use as instructed up to 7 times daily for insulin injections and glucose checks., Disp: 200 each, Rfl: 1 amLODIPine (NORVASC) 5 MG tablet, TAKE 1 TABLET (5 MG TOTAL) BY MOUTH DAILY., Disp: 90 tablet, Rfl:1 blood sugar diagnostic (ONETOUCH VERIO TEST STRIPS) Strp, USE 1 STRIP TO CHECK GLUCOSE UP TO 4 TIMES DAILY, Disp: 150 strip, Rfl: 11 blood sugar diagnostic Strp, Use 1 strip as directed 4 times a day as needed (prn)., Disp: , Rfl: blood-glucose meter (TRUE METRIX GLUCOSE METER) [facility], Use to test blood sugar up to 4 times a day. Dx: 9.65. Brand per pharmacy / insurance preference., Disp: 1 each, Rfl: 0 carvediloL (COREG) 25 MG tablet, TAKE 1 TABLET (25 MG TOTAL) BY MOUTH 2 TIMES A DAY WITH MEALS, Disp: 180 tablet, Rfl: 1 cycloSPORINE modified (NEORAL/GENGRAF) 25 MG capsule, Take 4 capsules (100 mg total) by mouth everymorning AND 4 capsules (100 mg total) every evening., Disp: 240 capsule, Rfl: 5 famotidine (PEPCID) 20 MG tablet, Take 1 tablet (20 mg total) by mouth daily., Disp: 60 tablet, Rfl: 0 fluticasone propionate (FLONASE) 50 mcg/actuation nasal spray, USE 1 SPRAY INTO EACH NOSTRIL DAILY., Disp: 16 mL, Rfl: 2 insulin glargine (LANTUS SOLOSTAR) 100 unit/mL (3 mL) InPn, Inject 10 Units subcutaneously at bedtime., Disp: 15 mL, Rfl: 0 insulin lispro 100 unit/mL InPn, Inject 5 units into the skin twice a day with lunch and dinner IN ADDITION TO SLIDING SCALE INSULIN: Blood glucose 150-199 =2 units, 200-249 =4 units, 250-299 =7 units, 300-349 =10 units, greater than 349 = 12 units (Patient taking differently: Inject 5 units into the skin twice a day with lunch and dinner IN ADDITION TO SLIDING SCALE INSULIN three times daily: Blood glucose 150-199 =2 units, 200-249 =4 units, 250-299 =7 units, 300-349 =10 units, greater than 349 = 12 units), Disp: 15 mL, Rfl: 2 loratadine (CLARITIN) 10 mg tablet, Take 1 tablet (10 mg total) by mouth., Disp: , Rfl: magnesium oxide (MAG-OX) 400 mg tablet, Take 1 tablet by mouth twice daily, Disp: 180 tablet, Rfl: 1 mycophenolate (CELLCEPT) 250 mg capsule, Take 1 capsule (250 mg total) by mouth 2 times a day., Disp: 60 capsule, Rfl: 5 ONETOUCH DELICA PLUS LANCET 33 gauge Misc, USE 1 NEW LANCET TO CHECK GLUCOSE UP TO 4 TIMES DAILY, Disp: 100 each, Rfl: 11 pen needle, diabetic (SURE COMFORT PEN NEEDLE) 32 gauge x 5/32 Ndle, Use with insulin injections, Disp: 100 each, Rfl: 0 pen needle, diabetic 32 gauge x 5/32 Ndle, Use for insulin injections 3 times daily as directed., Disp: 150 each, Rfl: 2 semaglutide, DIABETES, (OZEMPIC) 0.25 mg or 0.5 mg (2 mg/3 mL) PnIj, Inject 0.5 mg subcutaneously once a week. Monday, Disp: , Rfl: spironolactone (ALDACTONE) 25 MG tablet, TAKE 1 TABLET (25 MG TOTAL) BY MOUTH DAILY. INDICATIONS: HYPERTENSION, Disp: 90 tablet, Rfl: 1 tiZANidine (ZANAFLEX) 2 MG tablet, Take 1 tablet (2 mg total) by mouth every 8 hours as needed (at [facility] for sleep)., Disp: , Rfl: traMADoL (ULTRAM) 50 mg tablet, Take 1 tablet (50 mg total) by mouth every 6 hours as needed for Pain., Disp: , Rfl: UNABLE TO FIND, 5 mg in the morning and at bedtime. Med Name: THC gummies 5 mg BID (Patient taking differently: 5 mg 2 times a day as needed. Med Name: THC gummies 5 mg BID), Disp: , Rfl: naloxone (NARCAN) 4 mg/actuation [place], Apply 1 spray in one nostril if needed. Call 911. May repeatdose in other nostril if no response in 3 minutes. (Patient not taking: Reported on 12/11/2024), Disp: 2 each, Rfl: 1 Allergies: Codeine, Topamax [topiramate], Doxycycline, and Adhesive tape-silicones Family History: His family history includes Arthritis in his mother; Autoimmune disease in his brother; Depression in his mother; Diabetes in his mother; Fibromyalgia in his mother; Hypertension in his father and mother; Kidney disease in his brother, brother, and father; Osteoporosis in his mother. Past Surgical History: He has a past surgical history that includes Peritoneal catheter insertion; Knee cartilage surgery;colectomy amy (Right); Renal biopsy; Central venous catheter insertion; Nephrectomy transplanted organ (N/A, 01/26/2023); Abdominal surgery; Colon surgery; Eye surgery; [place] tooth extraction; ET tubes; Cervical fusion (N/A, 01/01/2024); Colonoscopy (N/A, 07/02/2024); and Colonoscopy (N/A, 07/02/2024 ). Social History: He reports that he quit smoking about 10 years ago. His smoking use included cigarettes. He startedsmoking about 40 years ago. He has a 45 pack-year smoking history. He quit smokeless tobacco use about 29 years ago. His smokeless tobacco use included chew. He reports current alcohol use. He reports current drug use. Drug: Medical Marijuana. The following portions of the patient's history were reviewed and updated as appropriate: allergies, current medications, past family history, past medical history, past social history, past surgicalhistory, and problem list. Review of Systems: ROS Vital Signs: Blood pressure 126/84, height 5' 9 (1.753 m), weight (!) 226 lb 6.4 oz (102.7 kg). Physical Exam Constitutional: General: He is not in acute distress. Appearance: Normal appearance. He is well-developed. He is obese. He is not diaphoretic. HENT: Head: Normocephalic and atraumatic. Right Ear: External ear normal. Left Ear: External ear normal. Nose: Nose normal. Mouth/Throat: Pharynx: No oropharyngeal exudate. Eyes: General: No scleral icterus. Right eye: No discharge. Left eye: No discharge. Conjunctiva/sclera: Conjunctivae normal. Pupils: Pupils are equal, round, and reactive to light. Neck: Trachea: No tracheal deviation. Cardiovascular: Rate and Rhythm: Normal rate and regular rhythm. Heart sounds: Normal heart sounds. No murmur heard. No friction rub. No gallop. Pulmonary: Effort: Pulmonary effort is normal. No respiratory distress. Breath sounds: Normal breath sounds. No stridor. No wheezing or rales. Chest: Chest wall: No tenderness. Abdominal: General: Bowel sounds are normal. There is no distension. Palpations: Abdomen is soft. There is no fluid wave, hepatomegaly, splenomegaly or mass. Tenderness: There is no abdominal tenderness. There is no guarding or rebound. Hernia: No hernia is present. Comments: No dullness to flanks, liver edge palpable on inspiration Musculoskeletal: General: No tenderness. Cervical back: Normal range of motion and neck supple. Right lower leg: No edema. Left lower leg: No edema. Lymphadenopathy: Cervical: No cervical adenopathy. Skin: General: Skin is warm and dry. Coloration: Skin is not pale. Findings: No erythema or rash. Comments: No palmar erythema, jaundice or spider angiomata Neurological: Mental Status: He is alert and oriented to person, place, and time. Comments: No asterixis or tremors. Psychiatric: Behavior: Behavior normal. Thought Content: Thought content normal. Judgment: Judgment normal. Labs and imaging reviewed. Review of Lab Results: Lab Results Component Value Date WBC 7.3 12/10/2024 HGB 15.5 12/10/2024 HGB 10.5 (L) 01/26/2023 HCT 45.8 12/10/2024 HCT 32.2 (L) 01/26/2023 MCV 95.1 12/10/2024 PLT 250 12/10/2024 CREATININE 1.32 (H) 12/10/2024 CREATININE 1.31 01/08/2024 BUN 18 12/10/2024 NA 141 12/10/2024 K 4.1 12/10/2024 CL 104 12/10/2024 CO2 30 12/10/2024 CO2 37 01/08/2024 ALT 14 12/10/2024 AST 17 01/16/2024 ALKPHOS 57 12/10/2024 BILITOT 0.9 12/10/2024 Prior Diagnostic Testing: CT abdomen 07/19/2021: CT Abdomen WO IV contrast Order: [id number] Impression Limited by lack of intravenous contrast however bilateral renal cortical scarring and lobulated margins of atrophic kidneys (the right with numerous cystic lesions associated with the right kidney including I likely calyceal diverticulum versus intraparenchymal cyst in the superior pole and exophytic lower pole cyst without complex features. No obstructing uropathy or urolithiasis CRITICAL RESULT: No. COMMUNICATION: Per this written report. Dictated by Andreas Regalado on 07/19/2021 2:22 PM Signed by Andreas Regalado on 07/19/2021 2:46 PM Narrative Exam/Procedure: CT ABDOMEN PELVIS WO IV CONTRAST ordered by RAYMOND CARROLL [id number] CLINICAL INDICATION: Kidney Transplant evaluation TECHNIQUE: Multiple axial CT images were obtained from lung bases through pubic symphysis without the administration of IV contrast. Reformatted images in the coronal and sagittal planes were generated from theaxial data set to facilitate diagnostic accuracy. Total DLP (Dose-Length Product): 505.56 mGy.cm. Please note: The reported value represents the total of one or more individual components during the CT acquisition on this date and at this time, and as such, the same value may appear in more than one CT report depending on the interpreting/reporting physicians. COMPARISON: None. FINDINGS: Lower Chest: No suspicious findings. Analysis of the abdominopelvic viscera is limited by the absence of intravenous contrast material. Solid Abdominal Organs: Unremarkable liver and gallbladder. Bilateral renal cortical scarring and atrophic appearance of the kidneys (the right with calcifications potential cortical calcifications left kidney versus nonobstructing lithiasis simple appearing bilateral renal cortical cysts and calyceal diverticulum versus intraparenchymal cystic lesion in the superior pole right kidney. Unremarkable spleen. No suspicious adrenal findings. No suspicious pancreatic findings. GI Tract/Mesentery/Peritoneum: The large and small bowel appear normal in caliber. No evidence of inflammatory change. No suspicious peritoneal/mesenteric findings. Peritoneal dialysis catheter enters in the left of midline upper mid abdomen terminating in the right lower quadrant. Pelvic Viscera: No suspicious pelvic mass lesions. Lymph Nodes/Vasculature: No lymphadenopathy by CT size criteria. The aortoiliac vasculature is normal in caliber. Free Fluid:None Musculoskeletal and Body Wall:No acute osseous findings. Fat-containing direct bilateral aorta hernias Assessment & Plan: Tam Guerrero is a 59 y.o. male s/p kidney transplant 01/26/2023 with hepatitis B MORRIS positive and Hepatitis B core Ab positive donor who returns for a follow up visit accompanied by his . Last seen May 2024. Liver disease: APRI and FIB-4 suggestive of no significant liver disease. CT abdomen unremarkable liver. No fibroscan d/t past history of peritoneal dialysis. HBV: Check HBV serologies and liver panel. Vemlidy stopped by kidney transplant per protocol at 1 year. HBsAb reactive. Will monitor with every three month liver panel and hepatitis B serologies. Follow up in 6 months or sooner if problems. Medical Decision Making: The following items were considered in medical decision making: Permanent chart problem/surgery list reviewed Permanent chart chronic medication/allergy list reviewed Permanent chart social/family history reviewed Review/order clinical lab tests Review/order radiology tests Review/order other diagnostic or treatment interventions Rev iew old records This note was completely edited, written and reviewed by me and consists of information cut and pasted from the my most recent visit, my smart phrases and other Epic tools. I have personally reviewedall aspects of this note to at least include reviewing this patient's chart and problem list, updating the history, physical exam, lab and procedure results, and assessment and plan as detailed aboveand below. As such this visit note reflects my current evaluation and management for this patient. documented in this encounter Plan of Treatment Scheduled Orders Name Type Priority Associated Diagnoses Orde r Schedule Hepatic Function Panel, Serum Lab Routine Hepatitis B carrier (CMS-HCC) every 3 months for 4 Occurrences starting 12/11/2024 until 06/25/2025 Hepatitis B surface antigen Lab Routine Hepatitis B carrier (CMS-HCC) every 3 months for 4 Occurrences starting 12/11/2024 until 06/25/2025 Hepatitis B Surface Antibody, Quantitati Lab Routine Hepatitis B carrier ([facility]-HCC) every 3 months for 4 Occurrences starting 12/11/2024 until 06/25/2025 Hepatitis B Virus (HBV), PCR, Quant Lab Routine Hepatitis B carrier (CMS-HCC) every 3 months for 4 Occurrences starting 12/11/2024 until 06/25/2025 documented as of this encounter Visit Diagnoses Diagnosis Hepatitis B carrier ([facility]-HCC)- Primary Hepatitis B carrier documented in this encounter Additional Health Concerns Assessment Noted Time PHQ-9 Depression Total Score: 5 04/14/20 23 12:00 PM EST documented as of this encounter Care Teams Sociology Professor Relationship Specialty Start Date End Date Denis Jackson MD [address] [place] [address] PCP - General Family Medicine 04/19/22 Waylon Snow, RN Registered Nurse 02/07/23 documented as of this encounter
--- OUTSIDE RECORDS SUMMARY | 2024-12-18 10:10 | XMS_ITS | Encounter Summary ---
Author Organization [facility] Address [address] [place] [id number] Care Team Providers Care Campaign Manager Name Role Phone Denis Jackson MD Primary Care Provider [phone] Waylon Snow RN [facility] Anna angulo Source Comments This information [...] release of HIV test results or diagnoses. [id number] Reason for Visit * Reason Comments Kidney Transplant Follow-up Encounter Details Date Type Department Care Team ([facility] Contact Info) Description 12/18/2024 10:10 AM EDT Office Visit [facility] Kidney Transplant at [id number] [place] [address] Racheal Sanon MD [address] [place] [address] [address] [place] [address] Kidney replaced by transplant (Primary Dx); Long-term use of immunosuppressant medication Social History Tobacco Use Types Packs/Day Years Used Date Smoking Tobacco: Former Cigarettes 1.5 30 1 5 - 2014 Smokeless Tobacco: Former Chew Quit: 1995 Tobacco Cessation:Counseling Given: Not Answered Alcohol Use Standard Drinks/Week Comments Yes 0 (1 standard drink = 0.6 oz pur e alcohol) Rarely Utilities Answer Date Recorded In the past 12 months has th e [employer], oil, or water company threatened to shut off services in your home? No 01/01/2024 AUDIT-C Answer Date Recorded Q1: How often do you have a drink containing alcohol? Never 01/01/2024 Q2: How many drinks containi ng alcohol do you have on a typical day when you are drinking? Patient does not drink Q3: How often do you have si [...] place to sleep or slept in a chcf (including now)? No 07/06/2023 Housing Stability Vital Sign Answer Terence e Recorded In the last 12 months, was t here a time when you were not able to pay the mortgage or rent on time? No 01/01/2024 In the past 12 months, how m any times have you moved where you were living? 0 01/01/2024 At any time in the past 12 m [facility], were you homeless or living in a chcf (including now)? No 01/01/2024 Yearly Questionnaire Answer [...] Sign Reading Time Taken Comments Blood Pressure 145/83 12/18/2024 10:35 AM EDT Pulse 64 12/18/2024 10:14 AM EDT Temperature - - Respiratory Rate 16 12/18/2024 10:1 4 AM EDT Oxygen Saturation 97% 12/18/2024 10: 14 AM EDT Inhaled Oxygen Concentration 97% 10/2024 10:14 AM EDT Weight 100.6 kg (221 lb 11.2 oz) 2024 10:14 AM EDT Height 175.3 cm (5' 9 ) 12/18/2024 10:1 4 AM EDT Body Mass Index 32.74 12/18/2024 10:14 AM EDT documented in this encounter Progress Notes * Racheal Sanon MD - 12/18/2024 10:10 AM EDT Images from the original note were not included. Name: Tam Guerrero Date of : 1965 (59 y.o.) Date of Service: 12/18/2024 Subjective History of Present Illness: HPI Date of Transplant: 01/26/2023 Type of Transplant: Donation after Brain (Anonymous - Non-Biological) Cause of End Stage Renal Disease: Other, Specify - Chronic tubulo-nephritis, unspecified CPRA: KDPI: 30 Ag Mismatches: CMV Recipient Status: Lab Results Component Value Date CMVIGG Positive (A) 11/06/2023 EBV Recipient Status: Lab Results Component Value Date EBVVCAIGG Positive (A) 11/03/2023 CMV IGG Donor Status: Positive EBV IGG Donor Status: Postive Donor's [facility] High Risk Status: No Chief Complaint: Chief Complaint Patient presents with Kidney Transplant Follow-up Hearing loss chronic follows ENT Knee issues - getting steroids Review of Systems HENT: Positive for hearing loss. Respiratory: Negative for cough. Cardiovascular: Negative for chest pain. Musculoskeletal: Knee pains bilaterally All other systems reviewed and are negative. 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[facility]) Cataract 2021 CHF (congestive heart failure) ([facility]) Chronic kidney disease Colorectal polyps CPAP (continuous positive airway pressure) dependence Diabetes mellitus ([facility]) ESRD (end stage renal disease) on dialysis ([facility]) Hearing impairment Hypercholesteremia Hypertension Lyme disease NSTEMI (non-ST elevated myocardial infarction) ([facility]) Obesity (BMI 30-39.9) ROSALIO (obstructive sleep apnea) Pulmonary HTN ([facility]) SCC (squamous cell carcinoma) Thyroid nodule Surgical History: Past Surgical History: Procedure Laterality Date ABDOMINAL SURGERY CENTRAL VENOUS CATHETER INSERTION CERVICAL FUSION N/A 01/01/2024 Procedure: CERVICAL 1-2 POSTEROLATERAL NON-SEGMENTAL INSTRUMENTATION, CERVICAL 1-2 POSTEROLATERAL ARTHRODESIS.; Surgeon: Albert Kuo MD; Location: [facility] OR; Service: Neurosurgery; Laterality: N/A; COLECTOMY ELIEL Right COLON SURGERY COLONOSCOPY N/A 07/02/2024 Procedure: COLONOSCOPY W/ OR W/O BIOPSY; Surgeon: Alycia Plaza MD; Location: [facility] ENDOSCOPY; Service: Gastroenterology; Laterality: N/A; COLONOSCOPY N/A 07/02/2024 Procedure: COLONOSCOPY LOWER POLYP REMOVAL SNARE OR CAUTERY; Surgeon: Alycia Plaza MD; Location: [facility] ENDOSCOPY; Service: Gastroenterology; Laterality: N/A; ET tubes EYE SURGERY (B) cararacts KNEE CARTILAGE SURGERY NEPHRECTOMY TRANSPLANTED ORGAN N/A 01/26/2023 Procedure: TRANSPLANT KIDNEY; Surgeon: Afsaneh Lama MD; Location: OR; Service: Transplant; Laterality: N/A; PERITONEAL CATHETER INSERTION RENAL BIOPSY WISDOM TOOTH EXTRACTION Family History: Family History Problem Relation Age of Onset Diabetes Mother Depression Mother Fibromyalgia Mother Arthritis Mother Osteoporosis Mother Hypertension Mother Kidney disease Father Hypertension Father Autoimmune disease Brother Kidney disease Brother Kidney disease Brother Social History: Social History Socioeconomic History Marital status: Spouse name: Not on file Number of children: Not on file Years of education: Not on file Highest education level: Not on file Occupational History Not on file Tobacco Use Smoking status: Former Current packs/day: 0.00 Average packs/day: 1.5 packs/day for 30.0 years (45.0 ttl pk-yrs) Types: Cigarettes Start date: 1984 Quit date: 2014 Years since quittin.6 Smokeless tobacco: Former Types: Chew Quit date: 1995 Vaping Use Vaping status: Never Used Substance and Sexual Activity Alcohol use: Yes Comment: Rarely Drug use: Yes Types: Medical Marijuana Sexual activity: Not Currently Other Topics Concern Caffeine Use Yes Occupational Exposure No Exercise No Seat Belt Yes Social History Narrative Not on file Social Drivers of Health Financial Resource Strain: Not on file Food Insecurity: No Food Insecurity (08/20/2024) Yearly Questionnaire Do you need any assistance with obtaining housing, meals, medication, transportation or medical equipment?: No Assistance needed for:: Not on file Transportation Needs: No Transportation Needs (08/20/2024) Yearly Questionnaire Do you need any assistance with obtaining housing, meals, medication, transportation or medical equipment?: No Assistance needed for:: Not on file Physical Activity: Not on file Stress: Not on file Social Connections: Not on file Intimate Partner Violence: Not At Risk (07/02/2024) Humiliation, Afraid, Rape, and Kick questionnaire Fear of Current or Ex-Partner: No Emotionally Abused: No Physically Abused: No Sexually Abused: No Housing Stability: Low Risk (08/20/2024) Yearly Questionnaire Do you need any assistance with obtaining housing, meals, medication, transportation or medical equipment?: No Assistance needed for:: Not on file Medications: Current Outpatient Medications Medication Sig acetaminophen (TYLENOL) 325 MG tablet Take 2 tablets (650 mg total) by mouth every 4 hours as needed. alcohol swabs PadM Use as instructed up to 7 times daily for insulin injections and glucose checks. amLODIPine (NORVASC) 5 MG tablet TAKE 1 TABLET (5 MG TOTAL) BY MOUTH DAILY. blood sugar diagnostic (Axcelis TechnologiesTOUCH VERIO TEST STRIPS) Strp USE 1 STRIP TO CHECK GLUCOSE UP TO 4 TIMESDAILY blood sugar diagnostic Strp Use 1 strip as directed 4 times a day as needed (prn). blood-glucose meter (TRUE METRIX GLUCOSE METER) [facility] Use to test blood sugar up to 4 times a day. Dx: 9.65. Brand per pharmacy / insurance preference. carvediloL (COREG) 25 MG tablet TAKE 1 TABLET (25 MG TOTAL) BY MOUTH 2 TIMES A DAY WITH MEALS cycloSPORINE modified (NEORAL/GENGRAF) 25 MG capsule Take 4 capsules (100 mg total) by mouth every morning AND 4 capsules (100 mg total) every evening. famotidine (PEPCID) 20 MG tablet Take 1 tablet (20 mg total) by mouth daily. fluticasone propionate (FLONASE) 50 mcg/actuation nasal spray USE 1 SPRAY INTO EACH NOSTRIL DAILY. insulin glargine (LANTUS SOLOSTAR) 100 unit/mL (3 mL) InPn Inject 10 Units subcutaneously at bedtime. insulin lispro 100 unit/mL InPn Inject 5 units into the skin twice [...] =7 units, 300-349 =10 units, greater than 349= 12 units) loratadine (CLARITIN) 10 mg tablet Take 1 tablet (10 mg total) by mouth. magnesium oxide (MAG-OX) 400 mg tablet Take 1 tablet by mouth twice daily mycophenolate (CELLCEPT) 250 mg capsule Take 1 capsule (250 mg total) by mouth 2 times a day. naloxone (NARCAN) 4 mg/actuation [place] Apply 1 spray in one nostril if needed. Call 911. May repeat dose in other nostril if no response in 3 minutes. (Patient not taking: Reported on 12/11/2024) ONETOUCH DELICA PLUS LANCET 33 gauge [facility] USE 1 NEW LANCET TO CHECK GLUCOSE UP TO 4 TIMES DAILY pen needle, diabetic (SURE COMFORT PEN NEEDLE) 32 gauge x 5/32 Ndle Use with insulin injections pen needle, diabetic 32 gauge x 5/32 Ndle Use for insulin injections 3 times daily as directed. semaglutide, DIABETES, (OZEMPIC) 0.25 mg or 0.5 mg (2 mg/3 mL) PnIj Inject 0.5 mg subcutaneously once a week. Monday spironolactone (ALDACTONE) 25 MG tablet TAKE 1 TABLET (25 MG TOTAL) BY MOUTH DAILY. INDICATIONS: HYPERTENSION tiZANidine (ZANAFLEX) 2 MG tablet Take 1 tablet (2 mg total) by mouth every 8 hours as needed (at HS for sleep). traMADoL (ULTRAM) 50 mg tablet Take 1 tablet (50 mg total) by mouth every 6 hours as needed for Pain. UNABLE TO FIND 5 mg in the morning and at bedtime. Med Name: THC gummies 5 mg BID (Patient taking differently: 5 mg 2 times a day as needed. Med Name: THC gummies 5 mg BID) No current facility-administered medications for this visit. Allergies: Codeine, Topamax [topiramate], Doxycycline, and Adhesive tape-silicones [place]/CSA Target: Latest Ref Rng & Units 06/26/2024 07/15/2024 2024 10/21/2024 12/10/2024 [place]/Creatinine Level Creatinine (USE PT. THRESHOLDS) 0.60 - 1.30 mg/dL 1.24 1.10 1.76 1.46 1.32 Currently Enrolled Research Studies: Objective Physical Examination: Blood pressure (!) 162/91, pulse 64, resp. rate 16, height 5' 9 (1.753 m), weight 221 lb 11.2 oz (100.6 kg), SpO2 97%. Physical Exam Nursing note and vitals reviewed. Constitutional: Oriented to person, place, and time. Apears well-developed and well-nourished. HENT: Mouth/Throat: No oropharyngeal exudate. Eyes: No scleral icterus. Neck: Normal range of motion. Neck supple. No enlarged LN Cardiovascular: Normal rate and regular rhythm. No rub present. Pulmonary/Chest: Effort normal and breath sounds normal. No use of accessory muscles. Abdominal: Soft. Bowel sounds are normal. Musculoskeletal: Normal range of motion. No edema Neurological: Alert and oriented to person, place, and time. Skin: Skin is warm and dry. Psychiatric: Normal mood and affect. Behavior is normal. Review of Lab Results: Renal: Lab Results Component Value Date NA 141 12/10/2024 K 4.1 12/10/2024 CL 104 12/10/2024 CO2 30 12/10/2024 ANIONGAP 7 12/10/2024 BUN 18 12/10/2024 CREATININE 1.32 (H) 12/10/2024 GLUCOSE 110 (H) 12/10/2024 CALCIUM 10.8 (H) 12/10/2024 PHOS 3.0 12/10/2024 MG 2.2 12/10/2024 Hepatic: Lab Results Component Value Date ALKPHOS 57 12/10/2024 AST 17 01/16/2024 ALT 14 12/10/2024 ALBUMIN 4.4 12/10/2024 ALBUMIN 4.5 12/10/2024 LABPROT 6.0 01/08/2024 BILIDIRECT 0.19 12/10/2024 BILITOT 0.9 12/10/2024 BILIINDIRECT 0.71 12/10/2024 Lipids: Lab Results Component Value Date CHOLTOT 148 06/13/2023 TRIG 240 (H) 06/13/2023 HDL 42 (L) 06/13/2023 LDL 58 06/13/2023 CBC: Lab Results Component Value Date WBC 7.3 12/10/2024 RBC 4.82 12/10/2024 HGB 15.5 12/10/2024 HCT 45.8 12/10/2024 MCV 95.1 12/10/2024 MCH 32.1 12/10/2024 MCHC 33.8 12/10/2024 RDW 13.5 12/10/2024 MPV 7.4 (L) 12/10/2024 PLT 250 12/10/2024 Parathyroid: Lab Results Component Value Date PTH 190.0 (H) 03/18/2024 Hemoglobin A1C: Lab Results Component Value Date HGBA1C 7.1 (H) 11/04/2023 US Renal Transplant: Results for orders placed during the hospital encounter of 12/07/23 US RENAL TRANSPLANT Narrative EXAM: US RENAL TRANSPLANT INDICATION: Kidney replaced by transplant, BK viremia, Encounter for long-term (current) use of medications Increased Creatinine, add doppler DATE: 12/07/2023 10:06 AM EDT COMPARISON: 01/26/2023 Technique: Grayscale imaging acquisition was performed of the transplanted kidney and urinary bladder with limited color and spectral (duplex) Doppler analysis of the renal vasculature. FINDINGS: A right lower quadrant renal transplant is visualized measuring 10.5 cm in maximal length. Renal echogenicity is normal. There are no perinephric collections. There is mild pelvocaliectasis in the presence of a distended bladder. Following bladder emptying, there is improvement in the collecting sys tem dilation. There is a small 1.4 cm cyst at the mid kidney. The prevoid bladder volume is 287 mL. The post void bladder volume is 72 mL. Duplex Doppler interrogation of the transplant vasculature was performed. The main renal artery andvein are patent at the renal hilum. Intrarenal arterial resistive indices range from 0.55-0.68. Impression Mild collecting system dilation in the presence of a distended bladder. Patent transplant vasculature. Incomplete bladder emptying. Report Verified by: Yvette Christy MD at 12/07/2023 12:21 PM EDT Signed by: Yvette Christy MD on 12/07/2023 12:21 PM Results for orders placed during the hospital encounter of 01/25/23 US RENAL TRANSPLANT Narrative EXAM: US RENAL TRANSPLANT INDICATION: Other - Must specify in Comments field, S/P kidney transplant COMPARISON: None TECHNIQUE: Grayscale imaging acquisition was performed of the transplanted kidney and urinary bladder with limited color and spectral (duplex) Doppler analysis of the renal vasculature. FINDINGS: Renal transplant is visualized in the right lower quadrant. Transplant kidney measures 10.8 cm in size. There is no hydronephrosis. No fluid collections are identified. No masses or calculi are appreciated. Normal arterial and venous waveforms are demonstrated. Resistive indices within the renal parenchyma range from 0.6-0.68. Urinary bladder is not visualized. Impression Normal renal transplant ultrasound. Report Verified by: Jose Rhodes MD at 01/26/2023 3:14 PM EDT Signed by: Jose Rhodes MD on 01/26/2023 3:14 PM Urine: Lab Results Component Value Date LABCREAU 63.50 12/10/2024 LABPROT 6.0 01/08/2024 PROTEINUR 8 12/10/2024 UTPCR 0.13 12/10/2024 Others: Lab Results Component Value Date IRON 80 01/25/2023 LABIRON 32.1 01/25/2023 FERRITIN 379.5 (H) 01/25/2023 EBVDNAQNT Not Detected 11/03/2023 Assessment & Plan Renal/Allograft Function: #DDKT 01/26/23; serum Cr~0.8-1- Cr up at 1.4 today UPC/UA reviewed wnl Stent out 02/27/23 - DSA remains negative 03/2024 -Allosure 0.23% low risk for rejection. Immunosuppression: IS: thymo 08/16 Prograf >> Envarsus d/t headaches/SE profile and then to everolimus for persistent headaches-it didn't really help sx. - now Cyclosporine (since September 05) MMF Held 09/2023 due to skull osteomyelitis Pred 5 mg daily stopped back on MMF 250 mg bid. EBV igG + Infectious Disease ppx: Valcyte 04/27/23 compelted; low level CMVv Bactrim continue until 07/27/23 daily (toxo + donor) Hep B MORRIS+ and HB core Ab+. Completed Vemlidy. 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 MRI showed advanced central skull base osteomyelitis with retroclival phlegmon and small abscess collection at C1 contributing to canal narrowing and borderline cordcompression. Neurosurgery consulted and recommended q4 neurochecks Blood Cx abiotrophia; TTE negative Completed daptomycin /cefepime till 12/28/23 Dental eval per ID S/p C1-2 posterolateral non-segmental instrumentation fusion on 01/01/2024. Levaquin till 02/12/24. Hypertension/CVS: Goal <130/80 - Current meds: coreg 25 mg bid Amlodipine 5 mg daily. Aldactone 25 mg daily. Losartan held during last 10/2023 On Ozempic per PCP for DM Mineral Bone Disease: Mild hypercalcemia met alkalosis - excessive dairy intake Which has improved. PTH: 190 03/18/24 Anemia resolved. Hb 14 CBC normal. Follow up with PCP for vaccinations against influenza virus and strep pneumoniae and age appropriate cancer screen. Use of Suncreen -SPF >30, wear long sleeves and hat to limit sun exposure due to increased risk of skin cancer from immunosuppression. Maintain hydration, avoid excessive intake of concentrated sweets, juices, caffeine. Dual barrier contraception for women of childbearing age Patients with recurrent UTI- -limit fluid 2 hours before bedtime -add fiber to morning medication -mandie bottle with urination and voiding -limit bladder irritants (caffeine, carbonated drinks, artificial sugars, alcohol) -attempt to use restroom every 2-3 hours;do not hold -increase water intake -move cranberry to morning meds -RX estrace -no soap in perineal area -coconut oil daily after bathing and as needed Plan: -Low salt diet. -Continue current IS -Increase amlodipine 10 mg daily. -CSA Goal 100-125 -Continue MMF 250 mg bid -Aldactone 25 mg daily. - Follow Hepatitis panel Labs every 3 months RTC 6 months. The assessment & plan was reviewed and copied forward (with edits) from a note written by me on06/26/24. I have reviewed and updated the history, physical exam, data, assessment, and plan of the note so that it reflects my evaluation and management of the patient. RACHEAL SANON MD * Waylon Snow RN - 12/18/2024 10:10 AM EDT Medication list reviewed and necessary updates were made. Checked with patient to see if immunosuppression refills were needed. Patient presents with the following complaints: pt reports feeling well, good UOP and appetite, no GI issues, good hydration Current IS: CSA 100 BID MMF 250 BID Latest Reference Range & Units 12/10/24 09:21 BKV IU DNA Log, Blood log 10 IU/mL See Note BKV IU DNA Quant, Blood IU/mL Not Detected CMV DNA Qnt IU/mL Not Detected Log10 CMV Qn DNA PI log 10 IU/mL See Note documented in this encounter Plan of Treatment Not on file documented as of this encounter Visit Diagnoses Diagnosis Kidney replaced by transplant- Primary Long-term use of immunosuppressant medication documented in this encounter Additional Health Concerns Assessment Noted Time PHQ-9 Depression Total Score: 5 04/14/20 23 12:00 PM EST documented as of this encounter Care Teams Campaign Manager Relationship Specialty Start Date End Date Denis Jackson MD [address] [place] [address] PCP - General Family Medicine 04/19/22 Waylon Snow, RN Registered Nurse 02/07/23 documented as of this encounter
[2025-02-05 21:43] LABS: Hepatitis C Ab Qual. W/ RFX NEGATIVE (Negative)
[2025-02-07 09:22] LABS: Hepatitis B Surface Antigen Negative (Negative)
--- OUTSIDE RECORDS SUMMARY | 2025-02-07 11:53 | XMS_ITS | Clinical Summary ---
Author Organization [facility] Address [address] [place] [address] Care Team Providers Care Equity Manager Name Role Phone Unavailable Primary Care Provider Unavailabl e Social History Tobacco Use Types Packs/Day Years Used Date Smoking Tobacco: Never Assessed Sex and Gender Information Value Date Recorded Sex Assigned at Not on file Legal Sex Male 8:51 AM EDT Gender Identity Not on file Sexual Orientation Not on file Plan of Treatment Not on file
--- OUTSIDE RECORDS SUMMARY | 2025-02-07 11:53 | XMS_ITS | Encounter Summary ---
Author Organization [facility] Address [address] [place] [address] Care Team Providers Care Commutator Tester Name Role Phone Denis Jackson MD Primary Care Provider [phone] Waylon Snow RN [facility] Anna angulo Source Comments This information [...] release of HIV test results or diagnoses. [id number] Health Encounter Details Date Type Department Care Team ([facility] st Contact Info) Description 07/10/2023 Ophth Exam [facility]mology at [address] [place] [address] Sophia Rivera MD [address] [place] [address] Social History Tobacco Use Types Packs/Day Years Used Date Smoking Tobacco: Former Cigarettes 985 - 2014 Smokeless Tobacco: Never Alcohol Use Standard Drinks/Week Comments Not Currently 0 (1 standard drink = 0.6 oz pur e alcohol) Utilities Answer Date Recorded In the past 12 months has [employer], gas, oil, or water company threatened to shut off services in your home? No 07/06/2023 AUDIT-C Answer Date Recorded Q1: How often do you have a drink containing alcohol? Never 07/06/2023 Q2: How many drinks containi ng alcohol do you have on a typical day when you are drinking? Patient does not drink 4 Q3: How often do you have si x or more drinks on one occasion? Never 07/06/2023 PHQ-2 Answer Date Recorded PHQ-2 Total Score 1 04/14/2023 Hunger Vital Sign Answer Date Recorded Within the past 12 months, y ou worried that your food would run out before you got the money to buy more. Never true 07/06/19 24 Within the past 12 months, t he food you bought just didn't last and you didn't have money to get more. Never true 07/06/2023 PRAPARE - Transportation Answer Date Re corded In the past 12 months, has l ack of transportation kept you from medical appointments or from getting medications? No 06/16 In the past 12 months, has l ack of transportation kept you from meetings, work, or from getting things needed for daily living? No 07/06/2023 Housing Stability Vital Sign Answer [...] place to sleep or slept in a custodial (including now)? No 07/06/2023 Yearly Questionnaire Answer Date Record ed Do you need any assistance w ith obtaining housing, meals, medication, transportation or medical equipment? No 02/20 Assistance needed for: Not on file 3 Yearly Questionnaire Answer Date Record ed Do you need any assistance w ith obtaining housing, meals, medication, transportation or medical equipment? No 02/20 Assistance needed for: Not on file 3 Yearly Questionnaire Answer Date Record ed Do you need any assistance w ith obtaining housing, meals, medication, transportation or medical equipment? No 02/20 Assistance needed for: Not on file 3 Sex and Gender Information Value Date Recorded Sex Assigned at Male 04/18/2023 4:44 AM EST Legal Sex Male 3:46 PM EDT Gender Identity Male 04/18/2023 4:44 AM EST Sexual Orientation Not on file documented as of this encounter Plan of Treatment Not on file documented as of this encounter Visit Diagnoses Not on filedocumented in this encounter Additional Health Concerns Infection Onset Date Last Indicated Resolved Time Post COVID-19 06/01/2023 06/01/2023 08/10/2023 9:3 6 PM EDT Assessment Noted Time PHQ-9 Depression Total Score: 5 04/14/20 12:00 PM EST documented as of this encounter Care Teams Commutator Tester Relationship Specialty Start Date End Date Denis Jackson MD [address] [place] [address] PCP - General Family Medicine 04/19/22 Waylon Snow, RN Registered Nurse 02/07/23 documented as of this encounter
--- OUTSIDE RECORDS SUMMARY | 2025-02-07 11:53 | XMS_ITS ---
Author Organization [facility] Address [address] [place] [address] Care Team Providers Care Supervisor Poultry Farm Name Role Phone Denis Jackson MD Primary Care Provider [phone] Waylon Snow RN [facility] Anna angulo Transplant Episode Kidney Recipient [facility] ([place], [place]) - [facility] Organ Received: Left Kidney Transplanted on 01/26/2023 Marked as Active Follow-up on 01/26/2023 Kidney CoordinatorWaylon Snow RN Phone: N/A Fax: N/A Email: N/A [place] Organ Diagnosis Organ Primary Contributory Kidney Other, Specify - Chronic tubulo- nephritis, unspecified Infection History Noted Survival Infection Treatment Organism Resolved 11/27/2023 305 days Osteomyelitis of cervical spine ([facility]) 02/20/2023 25 days Hepatitis B Donor Information Organ ABO Source Meets Risk Criteria HLA Match Mismatches Cross Match Left Kidney Transplanted A2 DBD No A: 2 B: 2 DR: 2 Left Kidney Donor Serology Results Anti-CMV CMV IgG: Positive CMV IgM: Positive EBV IgG EBV VCA IgG: Postive Anti-HCV HCV Ab: Negative Anti-HBcAb HBC Total: Positive HBsAg HBsAg: Negative HBV DNA No results on file Anti-HIV I/II HIV Ab: Negative HIV RNA: Negaitve Anti-HTLV I/II HTLV: Not Done RPR/VDRL RPR: Negative EBV IgM EBV VCA IgM: Negative HBsAb HBsAb: Negative EBNA EBNA IgG: Postive EBNA IgM: Negative Care Team Name Role Phone Fax Email Waylon Snow RN Kidney Coordinator N/A N/ A N/A Paige Avitia RN Txp Pre Coordinator N/A N/A N/A Genesis Childers MD Referring Physician [phone] N/A Afsaneh Lama MD Surgeon Txp Surgeon [phone] N/A Austin Sanon MD Txp Patrol Captain [phone] N/A Events Post-Transplant Pre-Transplant Admitted: 01/25/2023 Referred: 01/03/2022 Transplanted: 01/26/2023 Evaluation began: 2 Discharged: 01/31/2023 Committee: 10/17/2022 UNOS qualified: 05/04/2021 Center waitlisted: 3 Dialysis History Dialysis History Start End Type Comments Center 05/04/2021 01/26/2023 Peritoneal [facility] Information Center Phone Fax Address [facility] [phone] [facility] [place] [id number]
--- OUTSIDE RECORDS SUMMARY | 2025-02-07 11:53 | XMS_ITS ---
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 Past Treatment and Therapy Plans Lifetime Dose Tracking * Chemical Lifetime Dose Automatic Entry Manual Entr y Fluoro Time 0.4 minutes 0.4 minutes 0 minutes Air Kerma 13 mGy 13 mGy 0 mGy Air Kerma Area Product 353.77 Gym 353.77 Gym 0 Gym
--- OUTSIDE RECORDS SUMMARY | 2025-02-07 11:53 | XMS_ITS | Clinical Summary ---
Author Organization Healthcare Address [address] [place] [address] Care Team Providers Care Leather Softener Name Role Phone Kody Mckinney MD Unavailable [phone] Denis Jackson MD Primary Care Provider [phone] Allergies Active Allergy Reactions Criticality Noted Date Comments Codeine Hives,Swelling,Rash High 05/27/2021 Patient has tolerated hydrocodone Latex Rash Low 05/27/2021 Bascom Other - please document in the comment field Low 05/27/2021 Wound Dressing Adhesive Rash Low 07/29/2021 Clear plastic tape Medications loratadine (Claritin) 10 MG tablet Take 10 mg by mouth 1 (one) time each day. Active amLODIPine (Norvasc) 10 MG tablet Take 10 mg by mouth 1 (one) time each day. Active torsemide (Demadex) 100 MG tablet Take 50 mg by mouth 1 (one) time each day. Active carvedilol (Coreg) 12.5 MG tablet Take 12.5 mg by mouth 2 (two) times a day with meals. Active gentamicin (Garamycin) 0.1 % cream Apply 1 application topically 1 (one) time each day. Apply to port 1 Active Sucroferric Oxyhydroxide (Velphoro) 500 MG chewable tablet Chew 1 tablet 3 (three) times a day with meals. Active PARoxetine (Paxil) 10 MG tablet Take 10 mg by mouth 1 (one) time each day. 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 ESRD (end stage renal disease) 08/02/2021 HTN (hypertension) 07/29/2021 Myocardial infarct 07/29/2021 ROSALIO (obstructive sleep apnea) 07/29/2021 Fair tolerance for activity 07/29/2021 Cecal polyp 07/20/2021 Overview (07/20/2021): Added automatically from request for surgery [id number] Obesity (BMI 30-39.9) 07/20/2021 Overview (07/20/2021): Added automatically from request for surgery [id number] Chronic renal failure syndrome, stage 4 (severe) 07/20/2021 Overview (07/20/2021): Added automatically from request for surgery [id number] Family History Medical History Relation Name Comments Autoimmune disease Brother suzy Caballero Kidney disease Brother suzy Caballero Heart disease Father Vahe guerrero Hypertension, benign Father Vahe guerrero Depression Mother Carol leslie Diabetes Mother Carol leslie Fibromyalgia Mother Carol leslie Relation Name Status Comments Brother suzy Caballero Father Vahe guerrero Mother Carol leslie Social History Tobacco Use Types Packs/Day Years Used Date Smoking Tobacco: Former Cigarettes 1.5 25.5 0 05/15/1989 - 10/27/2014 Cigars Smokeless Tobacco: Former Chew Quit: 05/15/1995 Tobacco Cessation:Counseling Given: No Alcohol Use Standard Drinks/Week Comments Not Currently 1 (1 standard drink = 0.6 oz pur e alcohol) Very seldom PHQ-2 Answer Date Recorded Patient Health Questionnaire-2 Score 0 08/31/2021 Sex and Gender Information Value Date Recorded Sex Assigned at Not on file Legal Sex Male 9:12 AM EST Gender Identity Not on file Sexual Orientation Straight 05/26/2021 9: 56 AM EST Last Filed Vital Signs Vital Sign Reading Time Taken Comments Blood Pressure 130/90 08/31/2021 9:24 AM EDT Pulse 94 08/31/2021 9:24 AM EDT Temperature 35.8 C (96.4 F) 08/31/2021 9:24 AM EDT Respiratory Rate 16 08/07/2021 7:38 AM EDT Oxygen Saturation 96% 08/07/2021 7:38 AM EDT Inhaled Oxygen Concentration - - Weight 95.9 kg (211 lb 6.7 oz) 08/31/2021 9:24 A M EDT Height 175.3 cm (5' 9 ) 08/31/2021 9:24 AM EDT Body Mass Index 31.22 08/31/2021 9:24 AM EDT Plan of Treatment Health Maintenance Due Date Last Done Comments [facility]-Depression Screening 1965 [facility]-Infant/Child/Adol SDOH Screenings 1965 [facility]- SDOH Screenings 09/20/1983 [facility]-Adult SDOH Screenings 09/20/1983 [facility]-DTaP,Tdap,and Td Vaccine s (1 - Tdap) 1984 [facility]-Hepatitis B Vaccines (1 of 3 - 19+ 3-dose series) 1984 CT Colonography 2010 Colonoscopy 2010 FIT-DNA 2010 FIT 2010 FOBT 2010 Sigmoidoscopy 2010 [facility]-Colorectal Cancer Screening 2010 [facility]-Pneumococcal Vaccine: 50 + Years (1 of 1 - PCV) 09/20/2015 [facility]-Zoster Vaccines (1 of 2) 09/20/2015 [id number] Vaccine (2 - 20 - season) 2025 01/27/2022 [facility]-Influenza Vaccine (#1) 2025 02/26/2024 [facility]-Diabetes: Hemoglobin A1C Discontinued 05/27/2021 HPV Vaccines Aged Out No longer eligi ble based on patient's age to complete this topic [facility]-HIB Vaccines Aged Out No longer e ligible based on patient's age to complete this topic [facility]-Hepatitis A Vaccines Aged Out No longer eligible based on patient's age to complete this topic [facility]-IPV Vaccines Aged Out No longer e ligible based on patient's age to complete this topic [facility]-Rotavirus Vaccines Aged Out No lo nger eligible based on patient's age to complete this topic Procedures Procedure Name Priority Date/Time Associated Diagnosis Comments HEMOGLOBIN A1C Routine 05/27/2021 10:04 AM EST End stage renal disease (CMS/HCC) from Last 3 Months or Most Recently Relevant to Health Maintenance Results * (ABNORMAL) Hemoglobin A1c (05/27/2021 10:04 AM EST) Hemoglobin A1c 5.7(H) <5.7 % 05/27/2021 11:36 AM EST [facility] Blood Venous blood specimen / Unknown Venipuncture / Unknown 05/27/2021 10:04 AM EST 05/27/2021 11:26 AM EST Narrative [facility] - 05/27/2021 11:36 AM EST HA1C Interpretive Data: Diagnosis of Diabetes: Diabetic > or = 6.5% Pre-diabetic 5.7 to 6.4% Non-diabetic < or = 5.6% Glycemic Targets for Type I and Type II Diabetics: Non- Adults <7.0% Adults <6.0% Children and Adolescents <7.5% Source: [place] [employer]. Standards of medical care in diabetes,2017. Diabetes Care.2017:40 (suppl 1):S1-S135. HbA1c assay performed by an ion-exchange chromatography method that is certified traceable to the DCCT. us Becka Velasquez MD LAB BLOOD ORDERABLES Final Resul t [facility] [address] [place] [phone] from Last 3 Months or Most Recently Relevant to Health Maintenance Insurance [id number] MEDICARE MEDICARE MEDICARE Advance Directives * Full Code (Latest Code Status on File) Date Activated Date Inactivated Comments 08/03/2021 2:54 PM 08/07/2021 2:08 PM Question Answer Comments Patient has decision-making capacity? Yes Care Teams Leather Softener Relationship Specialty Start Date End Date Denis Jackson MD [address] [place] [address] PCP - General 05/19/21 Kody Mckinney MD [address] [place] [address] Referring Physician 05/18/21
--- OUTSIDE RECORDS SUMMARY | 2025-02-07 11:53 | XMS_ITS | Clinical Summary ---
Author Organization [facility] Address [address] [place] [address] Care Team Providers Care Bridge Manager Name Role Phone Unavailable Primary Care Provider Unavailabl e Social History Tobacco Use Types Packs/Day Years Used Date Smoking Tobacco: Never Assessed Sex and Gender Information Value Date Recorded Sex Assigned at Male 12/29/2023 8:20 PM EDT Legal Sex Male 3:26 PM EST Gender Identity Male 12/29/2023 8:20 PM EDT Sexual Orientation Straight 12/29/2023 8: 20 PM EDT Plan of Treatment Health Maintenance Due Date Last Done Comments Cologuard 1965 Colonoscopy 1965 Colorectal Cancer Screening 1965 FIT 1965 Tetanus Vaccination (Every 10 Years) 09/20/1983 Pneumococcal Vaccine: 50+ Ye ars (1 of 1 - PCV) 09/20/2015 Zoster-RZV(Shingrix) (1 of 2) 09/20/2015 Depression Screening 05/15/2024 COVID-19 Vaccine (2 - season) 2025 Influenza Vaccination (#1) 2025 03/27/2023 Lipid Screening 06/13/2028 06/13/2023, 06/13/2023 Insurance [facility]
--- OUTSIDE RECORDS SUMMARY | 2025-02-07 11:53 | XMS_ITS | Encounter Summary ---
Author Organization [facility] Address [address] [place] [address] Care Team Providers Care Data Processing Supervisor Name Role Phone Denis Jackson MD Primary Care Provider [phone] Waylon nSow RN [facility] Anna angulo Source Comments This information [...] release of HIV test results or diagnoses. [id number] Health Reason for Visit * Reason Onset Date Comments Medication Refill 09/11/2023 Encounter Details Date Type Department Care Team ([facility] st Contact Info) Description 09/11/2023 Refill [facility] Kidney Transplant at [facility] [address] [facility] [address] [place] [address] Lachelle Motley, PHYSICIAN PRIMARY CARE SPORTS MEDICINE [address] [facility] [address] [place] [address] Social History Tobacco Use Types Packs/Day Years Used Date Smoking Tobacco: Former Cigarettes 1.5 30 1 985 - 2014 Smokeless Tobacco: Former Chew Quit: 1995 Alcohol Use Standard Drinks/Week Comments Yes 0 (1 standard drink = 0.6 oz pur e alcohol) Rarely Utilities Answer Date Recorded In the past 12 months has e electric, gas, oil, or water company threatened [...] place to sleep or slept in a halfway (including now)? No 07/06/2023 Yearly Questionnaire Answer Date Record ed Do you need any assistance w ith obtaining housing, meals, medication, transportation or medical equipment? No 02/20 Assistance needed for: Not on file 3 Yearly Questionnaire Answer Date Record ed Do you need any assistance w ith obtaining housing, meals, medication, transportation or medical equipment? No 02/20 Assistance needed for: Not on file Yearly [...] filedocumented in this encounter Additional Health Concerns Assessment Noted Time PHQ-9 Depression Total Score: 5 04/14/20 23 12:00 PM EST documented as of this encounter Care Teams Data Processing Supervisor Relationship Specialty Start Date End Date Denis Jackson MD [address] [place] [address] PCP - General Family Medicine 04/19/22 Waylon Snow, RN Registered Nurse 02/07/23 documented as of this encounter
--- OUTSIDE RECORDS SUMMARY | 2025-02-07 11:54 | XMS_ITS ---
Author Organization [facility] Address [facility] [place] [address] Care Team Providers Care Restaurant Busser Name Role Phone Denis Jackson MD Primary Care Provider [phone] Waylon Snow RN Active Problems Patient Care Coordination No te Formatting of this note migh t be different from the original. [employer] 4251. Steph MAGAÑA RN. she/hers. [facility] Infectious Diseases -- OPAT (Outpatient Parenteral Antimicrobial Therapy). [phone]. Problem Noted Date Diagnosed Date Chronic otitis media 02/22/2024 Primary hypertension 12/22/2023 Insulin dependent type 2 diabetes mellitus 12/21 BiPAP (biphasic positive airway pressure) depend ence 12/22/2023 Hyperkalemia 12/07/2023 Osteomyelitis of cervical spine 11/27/2023 Assessment & Plan (02/26/2024 10:44 AM EDT): - s/p incision and drainage and hardware placement on 01/01/24 - operative cx's NGTD - prior workup positive only for PsA found on Karius testing - treated with Dapto + Cefepime -> Levaquin to complete an additional 6 weeks of therapy, end 02/13/24 - no further abx needed - repeat ESR, CRP today - RTC prn Assessment & Plan (01/22/2024 11:23 AM EDT): - s/p incision and drainage and hardware placement on 01/01/24 - operative cx's NGTD - prior workup positive only for PsA found on Karius testing - treated with Dapto + Cefepime post operatively to prevent any seeding of the new hardware - has completed 3 weeks IV abx, will transition to oral Levaquin to complete the final 3 weeks abx, end 02/12/24 - awaiting weekly labs from today - IR referral for tunneled line removal - RTC 4 weeks Assessment & Plan (12/25/2023 12:22 PM EDT): - blood and CSF cx's negative - Karius only positive for PsA (a common pathogen for this dz) - plan for surgical intervention 01/01/24 - will need operative cx's for bacteria, fungi and AFB - continue Cefepime through surgery - safety labs weekly BC with diff, CMP, ESR, CRP - will require inpatient ID consult post operatively to decide on duration and choice of abx - RTC 3-4 weeks - RTC 4 weeks Assessment & Plan (11/27/2023 12:15 PM EDT): - blood and CSF cx's negative - Karius only positive for PsA (a common pathogen for this dz) - continue Cefepime - d/c Vanc but start Bactrim in case some MRSA despite negative cx's - labs weekly BC with diff, CMP, ESR, CRP - given lack of improvement despite weeks of IV abx, presume he needs repeat imaging. Will discuss imaging modality and follow-up with NSGY - RTC 4 weeks Arthralgia 11/15/2023 Dysfunction of eustachian tube 08/17/2023 Sensorineural hearing loss (SNHL) of both ears 0 08/17/2023 Immunosuppression 07/31/2023 Chronic intractable headache 07/31/2023 Kidney transplant recipient 04/28/2023 Hepatitis B 02/20/2023 Hepatitis B carrier 02/20/2023 Pre-transplant evaluation for kidney transplant 03/03/2022 Cancer of ileocecal valve 02/25/2022 ESRD (end stage renal disease) on dialysis 02/23 Thyroid nodule 02/23/2022 SCC (squamous cell carcinoma) 02/23/2022 Pulmonary HTN 02/23/2022 Current Treatment and Therapy Plans No current plan information found. Past Treatment and Therapy Plans Resolved Problems Problem Noted Date Diagnosed Date Resolved Date Colon cancer 03/03/2022 03/03/2022
--- OUTSIDE RECORDS SUMMARY | 2025-02-07 11:54 | XMS_ITS | Clinical Summary ---
Author Organization [facility] Address [address] [place] [address] Care Team Providers Care Shuttle Hand Name Role Phone Denis Jackson MD Primary Care Provider [phone] Waylon Snow RN [facility] Anna angulo Source Comments This information has been disclosed to you from confidential records protectedfrom disclosure by state law. You shall make no further disclosure of thisinformation without the specific, written, and informed release of theindividual to whom it pertains, or as otherwise permitted by law. A generalauthorization for the release of medical or other information is not sufficientfor the purposes of therelease of HIV test results or diagnoses. [id number] Health Allergies Active Allergy Reactions Criticality Noted Date Comments Adhesive Tape-Silicones Rash Low 07/29/2021 Clear plastic tape Codeine Hives,Nausea Only,Rash,Swelling High 01/22/2021 Other reaction(s): GI Upset Patient has tolerated hydrocodone Doxycycline Swelling 11/27/2023 Topiramate Anxiety,Other (See Comments) High 11/07/2023 Patient states he gets paranoid and confused and wanted to leave the hospital last time he received this medication Medications pen needle, diabetic 32 gauge x 5/32 Ndle Use for insulin injections 3 times daily as directed. 150 each 2 01/31/2023 12:59 PM EDT 3 Active alcohol swabs PadM Use as instructed up to 7 times daily for insulin injections and glucose checks. 200 each 1 03/09/2023 9:17 AM EDT 3 Active blood-glucose meter (TRUE METRIX GLUCOSE METER) Misc Use to test blood sugar up to 4 times a day. Dx: 9.65. Brand per pharmacy / insurance preference. 1 each 01/31/2023 12:59 PM EDT 3 Active loratadine (CLARITIN) 10 mg tablet Take 1 tablet (10 mg total) by mouth. Active famotidine (PEPCID) 20 MG tablet Take 1 tablet (20 mg total) by mouth daily. 60 tablet 05/18/2023 11:08 AM EST 4 Active pen needle, diabetic (SURE COMFORT PEN NEEDLE) 32 gauge x 5/32 Ndle Use with insulin injections 100 each 07/15/2023 2:17 PM EST 4 Active insulin lispro 100 unit/mL InPn Inject 5 units into the skin twice a day with lunch and dinner IN ADDITION TO SLIDING SCALE INSULIN: Blood glucose 150-199 =2 units, 200-249 =4 units, 250-299 =7 units, 300-349 =10 units, greater than 349 = 12 units 15 mL 2 07/15/2023 2:17 PM EST 4 Active Additional Information Patient taking differently: Inject 5 units into the skin twice a day with lunch and dinner IN ADDITION TO SLIDING SCALE INSULIN three times daily: Blood glucose 150-199 =2 units, 200-249 =4 units, 250-299 =7 units, 300-349 =10 units, greater than 349 = 12 units, Reported on 12/18/2024 insulin glargine (LANTUS SOLOSTAR) 100 unit/mL (3 mL) InPn Inject 10 Units subcutaneously at bedtime. 15 mL 07/15/2023 2:17 PM EST 4 Active acetaminophen (TYLENOL) 325 MG tablet Take 2 tablets (650 mg total) by mouth every 4 hours as needed. 100 tablet 3 4 Active UNABLE TO FIND 5 mg in the morning and at bedtime. Med Name: THC gummies 5 mg BID Active ONETOUCH DELICA PLUS LANCET 33 gauge Misc USE 1 NEW LANCET TO CHECK GLUCOSE UP TO 4 TIMES DAILY 100 each 11 4 Active blood sugar diagnostic (ONETOUCH VERIO TEST STRIPS) Str USE 1 STRIP TO CHECK GLUCOSE UP TO 4 TIMES DAILY 150 strip 11 4 Active tiZANidine (ZANAFLEX) 2 MG tablet Take 1 tablet (2 mg total) by mouth every 8 hours as needed (at [facility] for sleep). 4 Active semaglutide, DIABETES, (OZEMPIC) 0.25 mg or 0.5 mg (2 mg/3 mL) PnIj Inject 0.5 mg subcutaneously once a week. Monday Active traMADoL (ULTRAM) 50 mg tablet Take 1 tablet (50 mg total) by mouth every 6 hours as needed for Pain. Active magnesium oxide (MAG-OX) 400 mg tabletIndicati ons:Kidney replaced by transplant,Imm unosuppressive management encounter following kidney transplant,Hyp omagnesemia Take 1 tablet by mouth twice daily 180 tablet 1 5 Active cycloSPORINE modified (NEORAL/GENGRA F) 25 MG capsuleIndicat ions:Preventio n of Kidney Transplant Rejection Take 4 capsules (100 mg total) by mouth every morning AND 4 capsules (100 mg total) every evening. 240 capsule 5 01/20/2025 9:26 AM EDT 5 Active mycophenolate (CELLCEPT) 250 mg capsuleIndicat ions:Preventio n of Kidney Transplant Rejection Take 1 capsule (250 mg total) by mouth 2 times a day. 60 capsule 5 01/20/2025 9:26 AM EDT 5 Active blood sugar diagnostic Strp Use 1 strip as directed 4 times a day as needed (prn). Active spironolactone (ALDACTONE) 25 MG tabletIndicati ons:hypertensi on TAKE 1 TABLET (25 MG TOTAL) BY MOUTH DAILY. INDICATIONS: HYPERTENSION 90 tablet 1 5 Active amLODIPine (NORVASC) 5 MG tablet TAKE 1 TABLET (5 MG TOTAL) BY MOUTH DAILY. 90 tablet 1 5 Active carvediloL (COREG) 25 MG tablet TAKE 1 TABLET (25 MG TOTAL) BY MOUTH 2 TIMES A DAY WITH MEALS 180 tablet 1 5 Active fluticasone propionate (FLONASE) 50 mcg/actuation nasal spray USE 1 SPRAY INTO EACH NOSTRIL DAILY. 16 mL 2 5 Active Active Problems Patient Care Coordination No te Formatting of this note migh t be different from the original. [employer]Cap 4256. Steph MAGAÑA RN. she/hers. [facility] Infectious Diseases -- OPAT (Outpatient Parenteral Antimicrobial Therapy). [phone]. Problem Noted Date Diagnosed Date Chronic otitis [...] - blood and CSF cx's negative - Fitzius only positive for PsA (a common pathogen [...] (squamous cell carcinoma) 02/23/2022 Pulmonary HTN 02/23/2022 Resolved Problems Problem Noted Date Diagnosed Date Resolved Date Colon cancer 03/03/2022 03/03/2022 Encounters Date Type Department Care Team Description 12/20/2024 Refill [facility] at [place] [id number] [facility] [address] [place] [address] Austin Sanon MD 12/18/2024 10:10 AM EDT Office Visit [facility] at [address] [place] [address] Austin Sanon MD Kidney replaced by transplant (Primary Dx); Long-term use of immunosuppressant medication 12/18/2024 Chart Note [facility]plant at [address] [place] [address] Patricia Kaufman MA Lab work 12/10/24 12/13/2024 Results Follow-Up [facility] Gastroenterology at [facility] Office [address] [place] [phone] Courtney Chase CNP Hepatitis B Virus (HBV), PCR, Quant, Hepatitis B surface antigen, Hepatitis B Surface Antibody, Quantitati, Hepatic Function Panel, Serum 12/12/2024 Telephone [facility] Neurosurgery at [facility] [address] [facility] [address] [place] [address] Albert Kuo MD Orders (Order Clarification Request ) 12/11/2024 3:40 PM EDT Office Visit [facility] Gastroenterology at [address] [place] [address] Courtney Chase CNP Hepatitis B carrier ([facility]) (Primary Dx) 12/10/2024 Orders Only [facility] Outreach Lab [address] [place] [address] [address] [place] [address] Maikol Lesariela Hepatitis B carrier ([facility]); Kidney transplanted; Kidney replaced by transplant; Immunosuppression ([facility]); 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/2024 10:15 AM EDT Office Visit [facility] Orthopaedics [place] [address] [place] [address] Rigo Santillan MD Right shoulder pain, unspecified chronicity (Primary Dx) 12/04/2024 Refill [facility] Transplant at [place] [address] [place] [address] Lachelle Motley CNP 11/29/2024 Refill [facility] Transplant at [address] [place] [address] Lachelle Motley CNP 11/26/2024 8:30 AM EDT Office Visit [facility] Orthopaedics at [place] [address] [place] [id number] Dione White MD Left knee pain, unspecified chronicity (Primary Dx); Pain in both knees, unspecified chronicity 11/18/2024 8:45 AM EDT Office Visit [facility] Orthopaedics [place] [address] [place] [phone] Dione White MD Right knee pain, unspecified chronicity (Primary Dx) 11/14/2024 Telephone [facility] Transplant at [facility] [address] [place] [address] Blanca York MA 11/08/2024 3:00 PM EDT Procedure visit [facility] Otol[facility]ology at [facility] [address] [place] [address] Sade Mann Au.D. 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) from Last 3 Months Immunizations Immunization Administration Dates Next Due COVID-19, mRNA, Moderna bivalent booster 022 Influenza, Trivalent, Preservative-Free 02/26/20 24 Influenza, high-dose, quadrivalent, preservative -free 03/27/2023 Family History Medical History Relation Comments Autoimmune disease Brother 1 Kidney disease Brother 1 Kidney disease Brother 2 Hypertension Father Kidney disease Father Arthritis Mother Depression Mother Diabetes Mother Fibromyalgia Mother Hypertension Mother Osteoporosis Mother Relation Status Comments Brother 1 Brother 2 Alive Father Alive Mother Alive Social History Tobacco Use Types Packs/Day Years Used Date Smoking Tobacco: Former Cigarettes 1.5 30 1 985 - 2014 Smokeless Tobacco: Former Chew Quit: 1995 Tobacco Cessation:Counseling Given: Not Answered Alcohol Use Standard Drinks/Week Comments Yes 0 (1 standard drink = 0.6 oz pur e alcohol) Rarely Utilities Answer Date Recorded In the past 12 months has [employer] gas, oil, or water [employer] threatened to shut off services in your [...] place to sleep or slept in a assisted (including now)? No 07/06/2023 Housing Stability Vital Sign Answer Terence e Recorded In the last 12 months, was t here a time when you were not able to pay the mortgage or rent on time? No 01/01/2024 In the past 12 months, how m any times have you moved where you were living? 0 01/01/2024 At any time in the past 12 m [facility], were you homeless or living in a assisted (including now)? No 01/01/2024 Yearly Questionnaire Answer [...] 08/20 Assistance needed for: Not on file Sex and Gender Information Value Date Recorded Sex Assigned at Male 04/18/2023 4:44 AM EST Legal Sex Male 3:46 PM EDT Gender Identity Male 04/18/2023 4:44 AM EST Sexual Orientation Not on file Last Filed Vital Signs Vital Sign Reading Time Taken Comments Blood Pressure 145/83 12/18/2024 10:35 AM EDT Pulse 64 12/18/2024 10:14 AM EDT Temperature 36.8 C (98.3 F) 08/20/2024 12:49 PM EDT Respiratory Rate 16 12/18/2024 10:1 4 AM EDT Oxygen Saturation 97% 12/18/2024 10: 14 AM EDT Inhaled Oxygen Concentration 97% 10/2024 10:14 AM EDT Weight 100.6 kg (221 lb 11.2 oz) 2024 10:14 AM EDT Height 175.3 cm (5' 9 ) 12/18/2024 10:1 4 AM EDT Body Mass Index 32.74 12/18/2024 10:14 AM EDT Plan of Treatment Health Maintenance Due Date Last Done Comments Immunization: DTaP/Tdap/Td ( 1 - Tdap) 1984 Immunization: Hepatitis A (1 of 2 - Risk 2-dose series) 1984 Immunization: Pneumococcal ( 1 of 2 - PCV) 1984 Immunization: Zoster (1 of 2) 1984 Cologuard (FIT-DNA) 2010 Stool Testing (gFOBT) 2010 Lung Cancer Screening 09/20/2015 Immunization: COVID-19 (2 - Moderna risk series) 02/24/2022 01/27/2022 Diabetic Eye Exam (MyChart) 02/03/2023 Hemoglobin A1C Monitoring (MyChart) 05/05/2024 11/04/2023, 06/13/2023, 04/24/2023, Additional history exists Alcohol Misuse Screening 12/19/2024 024, 11/02/2023, 07/05/2023, Additional history exists Immunization: Influenza (MyC flores) (#1) 2025 02/26/2024, 03/27/2023 Abnormal Colonoscopy Follow Up 07/02/2025 0 07/02/2024, 07/02/2024, 07/02/2024, Additional history exists Depression Screening 08/20/2025 08/20/2024, 04/14/2023, 02/20/2023 Renal Function/GFR 12/10/2025 12/10/2024, 0 10/21/2024, 2024, Additional history exists Lipid Panel 06/13/2028 06/13/2023, 04/14, 02/03/2023, Additional history exists Colonoscopy 07/02/2034 07/02/2024, 06/15, 07/02/2024, Additional history exists Colorectal Cancer Screening (Corticahart) 07/02/2034 Hepatitis C Screening (Chug) Completed 02/24/2023, 01/25/2023, 04/19/2022 HIV Screening Completed 03/06/2023, 01/13, 04/19/2022 Medical Devices Implanted Type Area Ram Press Operator Device Identifier Shelf Expiration Date Model / Serial / Lot Graft Bn Bn Fbr 5cc Algrf Frzdr Mld Pliafx - [id number] Implanted:Qty: 1 on 01/01/2024 by Albert Kuo MD at [facility] Graft N/A: Spine Cervical LIFE [employer] 10/22/2028 [id number] / / [id number] Graft Bone Magnifuse Demineralized Bone Matrix L5 Cm X W1 Cm Spine Cervical Posterior - [id number] Implanted:Qty: 1 on 01/01/2024 by Albert Kuo MD at [facility] Graft N/A: Spine Cervical [employer] SOFAMOR DANEK 01/02/2025 [id number] / [id number] / [id number] Cadavar Left Kidney Implanted:Qty: 1 on 01/26/2023 by Afsaneh Lama MD at [facility] Main Organ Right: Abdomen [id number] / [id number] / [id number] Screw Bn 34mm 3.5mm Ply Spne Ns 4mm Venu - [id number] Implanted:Qty: 2 on 01/01/2024 by Albert Kuo MD at [facility] Screw N/A: Spine Cervical DEPU[employer] SPINE [id number] / / REP Screw Bn 30mm 3.5mm Ply Spne Ns 4mm Venu - [id number] Implanted:Qty: 1 on 01/01/2024 by Albert Kuo MD at [facility] Screw N/A: Spine Cervical [employer] [id number] / / REP Screw Bn 32mm 3.5mm Ply Spne Ns 4mm Venu - [id number] Implanted:Qty: 1 on 01/01/2024 by Albert Kuo MD at [facility] Screw N/A: Spine Cervical [employer]INE [id number] / / REP Screw Set Ti T15 Std Spne Lck Cap Ns - [id number] Implanted:Qty: 4 on 01/01/2024 by Albert Kuo MD at [facility] Screw N/A: Spine Cervical DE[employer] SPINE [id number] / / REP Venu Spnl 30mm 4mm Ti Lrdtc Ns - [id number] Implanted:Qty: 2 on 01/01/2024 by Albert Kuo MD at [facility] Spine N/A: Spine Cervical DE[employer] SPINE [id number] / / REP Procedures Procedure Name Priority Date/Time Associated Diagnosis Comments PROTEIN / CREATININE RATIO, URINE Routine 12/10/2024 9:50 AM EDT Kidney replaced by transplant Immunosuppression ([facility]) BK viremia URINALYSIS W/RFL TO MICROSCOPIC Routine 12/10/2024 9:50 AM EDT Kidney replaced by transplant Immunosuppression ([facility]) BK viremia POST KIDNEY TRANSPLANT URINE CULTURE Routine 12/10/2024 9:50 AM EDT Kidney replaced by transplant Immunosuppression ([facility]) BK viremia CYTOMEGALOVIRUS DNA, QUANT, RT PCR Routine 12/10/2024 9:21 AM EDT Kidney replaced by transplant Immunosuppression ([facility]) BK viremia CBC Routine 12/10/2024 9:21 AM EDT Kidney replaced by transplant Immunosuppression ([facility]) BK viremia DIFFERENTIAL Routine 12/10/2024 9:21 AM EDT Kidney replaced by transplant Immunosuppression ([facility]) BK viremia MAGNESIUM Routine 12/10/2024 9:21 AM EDT Kidney replaced by transplant Immunosuppression (CMS-HCC) BK viremia RENAL FUNCTION PANEL W/EGFR Routine 12/10/2024 9:21 AM EDT Kidney replaced by transplant Immunosuppression (CMS-HCC) BK viremia BK VIRUS QUANTITATIVE BY PCR, BLOOD Routine 12/10/2024 9:21 AM EDT Kidney replaced by transplant Immunosuppression (CMS-HCC) BK viremia CYCLOSPORINE LEVEL Routine 12/10/2024 9: 21 AM EDT Kidney replaced by transplant Immunosuppression (CMS-HCC) BK viremia HEPATIC FUNCTION PANEL, SERUM Routine 12/10/2024 9:21 AM EDT Hepatitis B carrier (CMS-HCC) Kidney transplanted HEPATITIS B SURFACE ANTIBODY, QUANTITATIVE Routine 12/10/2024 9:21 AM EDT Hepatitis B carrier (CMS-HCC) Kidney transplanted HEPATITIS B SURFACE ANTIGEN Routine 12/10/2024 9:21 AM EDT Hepatitis B carrier (CMS-HCC) Kidney transplanted HEPATITIS B VIRUS (HBV), REAL-TIME PCR, QUANT Routine 12/10/2024 9:21 AM EDT Hepatitis B carrier (CMS-HCC) Kidney transplanted ENDOSCOPY, COLON Routine 07/02/2024 2:42 PM EST ENDOSCOPY, COLON Routine 07/02/2024 1:59 PM EST Encounter for screening colonoscopy HEMOGLOBIN A1C Routine 11/04/2023 2:11 AM EDT LIPID PANEL Routine 06/13/2023 10:53 AM EST Encounter for monitoring tacrolimus therapy Encounter for long-term (current) use of medications Kidney replaced by transplant HIV-1 RNA, QUANTITATIVE, PCR Routine 03/06/2023 10:11 AM EDT Kidney replaced by transplant Immunosuppressed status (CMS-HCC) HEPATITIS C ANTIBODY Routine 02/24/2023 10:17 AM EDT Hepatitis B carrier ([facility]) from Last 3 Months or Most Recently Relevant to Health Maintenance Results * Post Kidney Transplant Urine Culture (12/10/2024 9:50 AM EDT) Culture Result 1,000- <10,000 cfu/mL [facility] Culture Result Skin/Urogeni alejo [place]. No Further Workup. [facility] Midstream Urine URINE SPECIMEN / Unknown 12/10/2024 9:50 AM EDT 12/10/2024 1:07 PM EDT Narrative [facility] - 12/12/2024 9:06 AM EDT Has this patient recieved a kidney transplant?->Yes us Austin Sanon MD MICROBIOLOGY - GENERAL ORDERABLE S Final Result Performing Organization Address City/[facility] Hospital/ZIP Co de Phone Number [facility] [address] * Protein / creatinine ratio, urine (12/10/2024 9:50 AM EDT) Creatinine, Urine 63.50 mg/dL 12/10/2024 1:35 PM EDT [facility] Comment:Reference range not established for this test. Total Protein, Ur 8 mg/dL 12/10/2024 1:35 PM EDT [facility] Comment:Reference range not established for this test. Prot/Creat Ratio, Ur 0.13 ratio 12/10/2024 1:35 PM EDT [facility] Urine 12/10/2024 9:50 AM EDT 12/10/2024 1:06 PM EDT us Austin Sanon MD URINE ORDERABLES Final Result [facility] [address] [facility] * Urinalysis w/Rfl to Microscopic (12/10/2024 9:50 AM EDT) Color, UA Straw Yellow,Straw 12/10/2024 1:19 PM EDT [facility] Clarity, UA Clear Clear 12/10/2024 1:19 PM EDT [facility] Specific [place], UA 1.013 1.005 - 1.035 12/10/2024 1:19 PM EDT [facility] pH, UA 7.0 5.0 - 8.0 12/10/2024 1:19 PM EDT [facility] Protein, UA Negative Negative mg/dL 12/10/2024 1:19 PM EDT [facility] Glucose, UA Negative Negative mg/dL 12/10/2024 1:19 PM EDT [facility] Ketones, UA Negative Negative mg/dL 12/10/2024 1:19 PM EDT [facility] Bilirubin, UA Negative Negative 12/10/2024 1:19 PM EDT [facility] Blood, UA Negative Negative 12/10/2024 1:19 PM EDT [facility] Nitrite, UA Negative Negative 12/10/2024 1:19 PM EDT [facility] Urobilinogen, UA <2.0 0.2 - 1.9 mg/dL 12/10/2024 1:19 PM EDT [facility] Leukocyte Esterase, UA Negative Negative 12/10/2024 1:19 PM EDT [facility] Urine 12/10/2024 9:50 AM EDT 12/10/2024 1:06 PM EDT Narrative [facility] - 12/10/2024 1:19 PM EDT Microscopic testing is not performed when the dipstick is negative for blood, leukocyte, protein and nitrite. Austin Sanon MD URINE ORDERABLES Final Result [facility] [address] [place] [address], [facility] * (ABNORMAL) Hepatic Function Panel, Serum (12/10/2024 9:21 AM EDT) Total Bilirubin 0.9 0.0 - 1.5 mg/dL 12/10/2024 1:17 PM EDT [facility] Bilirubin, Direct 0.19 0.00 - 0.40 mg/dL 12/10/2024 1:17 PM EDT [facility] AST (SGOT) 10(L) 13 - 39 U/L 12/10/2024 1:17 PM EDT [facility] ALT 14 7 - 52 U/L 12/10/2024 1:17 PM EDT [facility] Alkaline Phosphatase 57 36 - 125 U/L 12/10/2024 1:17 PM EDT [facility] Total Protein 6.6 6.4 - 8.9 g/dL 12/10/2024 1:17 PM EDT [facility] Albumin 4.4 3.5 - 5.7 g/dL 12/10/2024 1:17 PM EDT [facility] Bilirubin, Indirect 0.71 0.00 - 1.10 mg/dL 12/10/2024 1:17 PM EDT [facility] Serum 12/10/2024 9:21 AM EDT 12/10/2024 12:59 PM EDT Courtney Chase [facility] BLOOD ORDERABLES Final Result Performing Organization Address City/State/[facility] Co de Phone Number [facility] [address] * BK Virus Quantitative by PCR, Blood (12/10/2024 9:21 AM EDT) BKV IU DNA Quant, Blood Not Detected IU/mL 12/12/2024 10:22 AM EDT [facility] Comment: Beginning August 24, 2021, [facility] has transitioned BK viral load testing from a lab developed test reporting in copies/ml to an FDA-approved assay reporting in IU/ml. Based on verification data, results are expected to be 0.63 log lower than the previous assay for plasma specimens. For more information about this change, contact the microbiology laboratory. Test methodology for BKV quantification is an FDA-approved nucleic acid amplification assay. The Lower Limit of Quantitation (LLOQ) is 21.5 IU/mL; the linear range is 21.5 - 100,000,000 IU/mL. The Limit of Detection (LoD) is 21.5 IU/mL. The reference range is Not Detected. BKV IU DNA Log, Blood See Note log 10 IU/mL 12/12/2024 10:22 AM EDT [facility] Comment:BKV DNA Not Detected Plasma 12/10/2024 9:21 AM EDT 12/10/2024 1:07 PM EDT us Austin Sanon MD LAB BLOOD ORDERABLES Final Resul t Performing Organization Address [facility] de Phone Number [facility] [address] [facility]. [address] * Cytomegalovirus DNA, Quant, RT PCR (12/10/2024 9:21 AM EDT) CMV DNA Qnt Not Detected IU/mL 12/11/2024 11:25 AM EDT [facility] Comment:Test methodology for CMV DNA quantification is an FDA-approved nucleic acid amplification assay. The Lower Limit of Quantitation (LLOQ) and Limit of Detection (LoD) for EDTA plasma is 34.5 IU/mL. The linear range of the assay is 34.5- 10,000,000 IU/mL. The reference range is Not Detected. Log10 CMV Qn DNA PI See Note log 10 IU/mL 12/11/2024 11:25 AM EDT [facility] Comment:CMV DNA not detected Plasma 12/10/2024 9:21 AM EDT 12/10/2024 1:07 PM EDT us Austin Sanon MD LAB BLOOD ORDERABLES Final Resul t Performing Organization Address [facility] de Phone Number [facility] [address] [facility] * (ABNORMAL) Renal Function Panel w/EGFR (12/10/2024 9:21 AM EDT) Sodium 141 133 - 146 mmol/L 12/10/2024 1:30 PM EDT [facility] Potassium 4.1 3.5 - 5.3 mmol/L 12/10/2024 1:30 PM EDT [facility] Chloride 104 98 - 110 mmol/L 12/10/2024 1:30 PM EDT [facility] CO2 30 21 - 33 mmol/L 12/10/2024 1:30 PM EDT [facility] Anion Gap 7 3 - 16 mmol/L 12/10/2024 1:30 PM EDT [facility] BUN 18 7 - 25 mg/dL 12/10/2024 1:30 PM EDT [facility] Creatinine 1.32(H) 0.60 - 1.30 mg/dL 12/10/2024 1:30 PM EDT [facility] Glucose 110(H) 70 - 100 mg/dL 12/10/2024 1:30 PM EDT [facility] Calcium 10.8(H) 8.6 - 10.3 mg/dL 12/10/2024 1:30 PM EDT [facility] Phosphorus 3.0 2.1 - 4.7 mg/dL 12/10/2024 1:30 PM EDT [facility] Albumin 4.5 3.5 - 5.7 g/dL 12/10/2024 1:30 PM EDT [facility] Osmolality, Calculated 295 278 - 305 mOsm/kg 12/10/2024 1:30 PM EDT [facility] EGFR 62 12/10/2024 1:30 PM EDT [facility] Comment:As of 2021, the estimated GFR is calculated using the 2020 Chronic Kidney Disease Epidemiology Collaboration (CKD-EPI) equation. In line with the NKF-ASN Task Force Recommendations, this equation does not include a coefficient for race. A single eGFR value is calculated for each patient. The reference interval is >60 mL/min/1.73m2. eGFR values greater than 90 will be reported as >90mL/min/1.73m2. Reference: Tyao C, Osman M, Arnold DC, Dipak ND, Jaycob CA, Paulette LA, et al. A Unifying Approach for GFR Estimation: Recommendations of the NKF-ASN Task Force on Reassessing the inclusion of Race in Diagnosing Kidney Disease. Am J Kidney Dis. 2020. Plasma 12/10/2024 9:21 AM EDT 12/10/2024 1:02 PM EDT us Austin Sanon MD LAB BLOOD ORDERABLES Final Resul t [facility] [address] * Hepatitis B Virus (HBV), PCR, Quant (12/10/2024 9:21 AM EDT) Hep B Viral DNA IU/ML Not Detected IU/mL 12/13/2024 10:54 AM EDT [facility] Comment:Test methodology for HBV DNA quantification is an FDA-approved nucleic acid amplification assay. The lower limit of quantitation (LLOQ) is 10 IU/mL. The linear range of the assay is 10-1,000,000,000 IU/mL. The limit of detection (LoD) for plasma is 2.7 IU/mL. The reference range is Not Detected. log 10 HBV as IU/mL See Note log 10 IU/mL 12/13/2024 10:54 AM EDT [facility] Comment:HBV DNA not detected . Plasma 12/10/2024 9:21 AM EDT 12/10/2024 1:07 PM EDT Courtney Chase [facility] BLOOD ORDERABLES Final Result [facility] [address] * Cyclosporine level (12/10/2024 9:21 AM EDT) Pathologist [facility] Cyclosporine, LC/MS 107.9 100.0 - 350.0 ng/mL 12/11/2024 3:17 PM EDT [facility] Comment:Performed via liquid chromatography tandem mass spectrometry. Detection limit: 20 ng/mL. Individual target concentrations may vary due to target organ and time after transplant. This test has been developed and its performance characteristics determined by [facility] which is certified under the Clinical Laboratory Improvement Amendment of 1988 (CLIA-88) to perform high complexity testing. The test has not been cleared or approved by the US Food and Drug Administration (FDA). The FDA has determined that such clearance is not necessary. The test should be used for clinical purposes and is not regarded as investigational. Whole Blood 12/10/2024 9:21 AM EDT 12/10/2024 12:58 PM EDT us Austin Sanon MD LAB BLOOD ORDERABLES Final Resul t [facility] [address] * (ABNORMAL) Differential (12/10/2024 9:21 AM EDT) Neutrophils Relative 72.6 40.0 - 80.0 % 12/10/2024 1:21 PM EDT [facility] Lymphocytes Relative 14.6(L) 15.0 - 45.0 % 12/10/2024 1:21 PM EDT [facility] Monocytes Relative 11.6 0.0 - 12.0 % 12/10/2024 1:21 PM EDT [facility] Eosinophils Relative 0.6 0.0 - 8.0 % 12/10/2024 1:21 PM EDT [facility] Basophils Relative 0.6 0.0 - 1.0 % 12/10/2024 1:21 PM EDT [facility] nRBC 0 0 - 0 /100 WBC 12/10/2024 1:21 PM EDT [facility] Neutrophils Absolute 5,300 1,520 - 8,640 /uL 12/10/2024 1:21 PM EDT [facility] Lymphocytes Absolute 1,066 570 - 4,860 /uL 12/10/2024 1:21 PM EDT [facility] Monocytes Absolute 847 0 - 1,296 /uL 12/10/2024 1:21 PM EDT [facility] Eosinophils Absolute 44 0 - 864 /uL 12/10/2024 1:21 PM EDT [facility] Basophils Absolute 44 0 - 108 /uL 12/10/2024 1:21 PM EDT [facility] Whole Blood 12/10/2024 9:21 AM EDT 12/10/2024 1:06 PM EDT us Austin Sanon MD LAB BLOOD ORDERABLES Final Resul t [facility] [address] [facility] [place] [address], [facility] * (ABNORMAL) Hepatitis B Surface Antibody, Quantitati (12/10/2024 9:21 AM EDT) Hep B S Ab Reactive( A) Nonreactive 12/10/2024 2:04 PM EDT [facility] HBSAB NUMBER 17.10(H) 0.00 - 7.99 mIU/mL 12/10/2024 2:04 PM EDT [facility] Serum 12/10/2024 9:21 AM EDT 12/10/2024 1:08 PM EDT [facility] - 12/10/2024 2:04 PM EDT Individual is considered immune to HBV infection. Courtney Chase [facility] BLOOD ORDERABLES Final Result Performing Organization Address [facility] Co de Phone Number [facility] [address] [facility]. [address] * Hepatitis B surface antigen (12/10/2024 9:21 AM EDT) Pathologist [facility] Hep B Surface Ag Nonreactive Nonreactive 12/10/2024 1:55 PM EDT [facility] Comment:Health Department no tified in accordance with reportable infectious disease guidelines. Serum 12/10/2024 9:21 AM EDT 12/10/2024 1:08 PM EDT [facility] - 12/10/2024 1:55 PM EDT Specimen is considered negative for HBsAg. Cuortney Chase [facility] BLOOD ORDERABLES Final Result Performing Organization Address City/[facility] Hospital/ZIP Co de Phone Number [facility] [address] [facility]. [address] * (ABNORMAL) CBC (12/10/2024 9:21 AM EDT) WBC 7.3 3.8 - 10.8 10E3/uL 12/10/2024 1:21 PM EDT [facility] RBC 4.82 4.20 - 5.80 10E6/uL 12/10/2024 1:21 PM EDT [facility] Hemoglobin 15.5 13.2 - 17.1 g/dL 12/10/2024 1:21 PM EDT [facility] Hematocrit 45.8 38.5 - 50.0 % 12/10/2024 1:21 PM EDT [facility] MCV 95.1 80.0 - 100.0 fL 12/10/2024 1:21 PM EDT [facility] MCH 32.1 27.0 - 33.0 pg 12/10/2024 1:21 PM EDT [facility] MCHC 33.8 32.0 - 36.0 g/dL 12/10/2024 1:21 PM EDT [facility] RDW 13.5 11.0 - 15.0 % 12/10/2024 1:21 PM EDT [facility] Platelets 250 140 - 400 10E3/uL 12/10/2024 1:21 PM EDT [facility] MPV 7.4(L) 7.5 - 11.5 fL 12/10/2024 1:21 PM EDT [facility] Whole Blood 12/10/2024 9:21 AM EDT 12/10/2024 1:06 PM EDT Austin Sanon MD LAB BLOOD ORDERABLES Final Resul t [facility] [address] * Magnesium (12/10/2024 9:21 AM EDT) Magnesium 2.2 1.5 - 2.5 mg/dL 12/10/2024 1:30 PM EDT [facility] Plasma 12/10/2024 9:21 AM EDT 12/10/2024 1:02 PM EDT Austin Sanon MD LAB BLOOD ORDERABLES Final Resul t [facility] [address] * Endoscopy, colon, diagnostic (07/02/2024 2:42 PM EST) 07/02/2024 2:42 PM EST Narrative [facility] - 07/02/2024 3:53 PM EST [facility] GI Patient Name: Tam Guerrero Procedure Date: 07/02/2024 2:42 PM Date of : 1965 Attending MD: Belia Plaza MD, [id number] Order #: Procedure: Colonoscopy Indications: High risk colon cancer surveillance: Personal history of colon cancer Patient Profile: This is a 58 year old male. Providers: Belia Plaza MD (Doctor) Referring MD: Medicines: Monitored Anesthesia Care Complications: No immediate complications. Estimated blood loss: Minimal. Procedure: Pre-Anesthesia Assessment: - Prior to the procedure, a History and Physical was performed, and patient medications and allergies were reviewed. The patient's tolerance of previous anesthesia was also reviewed. The risks and benefits of the procedure and the sedation options and risks were discussed with the patient. All questions were answered, and informed consent was obtained. Prior Anticoagulants: The patient has taken no anticoagulant or antiplatelet agents. ASA Grade Assessment: III - A patient with severe systemic disease. After reviewing the risks and benefits, the patient was deemed in satisfactory condition to undergo the procedure. After I obtained informed consent, the scope was passed under direct vision. Throughout the procedure, the patient's blood pressure, pulse, and oxygen saturations were monitored continuously. The Colonoscope was introduced through the anus and advanced to the ileocolonic anastomosis. The patient tolerated the procedure well. The terminal ileum was photographed. The colonoscopy was performed without difficulty. The quality of the bowel preparation was evaluated using the BBPS (Howard Bowel Preparation Scale) with scores of: Right Colon = 2 (minor amount of residual staining, small fragments of stool and/or opaque liquid, but mucosa seen well), Transverse Colon = 2 (minor amount of residual staining, small fragments of stool and/or opaque liquid, but mucosa seen well) and Left Colon = 2 (minor amount of residual staining, small fragments of stool and/or opaque liquid, but mucosa seen well). The total BBPS score equals 6. Findings: A localized area of granular mucosa was found at the anastomosis. Biopsies were taken with a cold forceps for histology. Estimated blood loss was minimal. Three sessile polyps were found in the descending colon. The polyps were 1 to 3 mm in size. These polyps were removed with a cold biopsy forceps. Resection and retrieval were complete. Four sessile, non-bleeding polyps were found in the descending colon, transverse colon and anastomosis. The polyps were 4 to 6 mm in size. One was near but not on the anastomosis. These polyps were removed with a cold snare. Resection and retrieval were complete. To prevent bleeding after the polypectomy, one hemostatic clip was successfully placed (MR conditional). Clip risk engineer: [employer]. There was no bleeding at the end of the procedure. Multiple medium-mouthed diverticula were found in the sigmoid colon and descending colon. Non-bleeding internal hemorrhoids were found during retroflexion. The hemorrhoids were small. The terminal ileum appeared normal. Estimated Blood Loss: Estimated blood loss was minimal. Impression: - Granularity at the colonic anastomosis. Biopsied. - Three 1 to 3 mm polyps in the descending colon, removed with a cold biopsy forceps. Resected and retrieved. - Four 4 to 6 mm, non-bleeding polyps in the descending colon, in the transverse colon and at the anastomosis, removed with a cold snare. Resected and retrieved. Clip (MR conditional) was placed. Clip risk engineer: [employer]. - Diverticulosis in the sigmoid colon and in the descending colon. - Non-bleeding internal hemorrhoids. - The examined portion of the ileum was normal. Recommendation: - Discharge patient to home. - Patient has a contact number available for emergencies. The signs and symptoms of potential delayed complications were discussed with the patient. Return to normal activities tomorrow. Written discharge instructions were provided to the patient. - Repeat colonoscopy 3-5 years for surveillance. Procedure Code(s): --- Professional --- 84980, 33, Colonoscopy, flexible; with removal of tumor(s), polyp(s), or other lesion(s) by snare technique 45028, 59,33, Colonoscopy, flexible; with biopsy, single or multiple Diagnosis Code(s): --- Professional --- Z12.11, Encounter for screening for malignant neoplasm of colon Z85.038, Personal history of other malignant neoplasm of large intestine K63.89, Other specified diseases of intestine D12.4, Benign neoplasm of descending colon D12.3, Benign neoplasm of transverse colon (hepatic flexure or splenic flexure) K64.8, Other hemorrhoids K57.30, Diverticulosis of large intestine without perforation or abscess without bleeding CPT copyright 2021 [employer]. All rights reserved. The codes documented in this report are preliminary and upon administrative accountant review may be revised to meet current compliance requirements. Belia Plaza MD Belia Plaza MD 07/02/2024 3:53:19 PM This report has been signed electronically.Belia Plaza MD Number of Addenda: 0 Note Initiated On: 07/02/2024 2:42 PM Scope Withdrawal Time 0 hours 21 minutes 3 seconds Total Procedure Duration Time 0 hours 23 minutes 5 seconds Scope In: 3:14:41 PM Scope Out: 3:37:46 PM us Attending Provider Unknown GI PROCEDURE ORDERABL ES Final Result [facility] * (ABNORMAL) Hemoglobin A1c (11/04/2023 2:11 AM EDT) Hemoglobin A1C 7.1(H) 4.0 - 5.6 % 11/04/2023 6:21 AM EDT [facility] Comment: Hemoglobin A1c Interpretation Guidelines: Normal: <5.7% Prediabetes: 5.7-6.4% Diabetes: >6.4% Diagnosis requires two independent tests unless clinical diagnosis is clear. Some clinical conditions, particularly anemias and hemoglobinopathies, may interfere with the diagnostic accuracy of hemoglobin A1c. The recommended goal for diabetic glycemic control (Hemoglobin A1c <7.0%) should be individualized based on duration of diabetes, age/life expectancy, comorbid conditions, known CVD or advanced microvascular complications, hypoglycemia unawareness, and other individual patient considerations. Whole Blood 11/04/2023 2:11 AM EDT 11/04/2023 2:17 AM EDT us Charlie Dunaway MD LAB BLOOD ORDERABLES Final Re sult [facility] [address] [place] [address], [facility] * (ABNORMAL) Lipid Profile - 180 days post-transplant (06/13/2023 10:53 AM EST) Non-HDL Cholesterol, Calculated 106 0 - 129 mg/dL 06/13/2023 6:46 PM EST [facility] Comment: Desirable: < 130 mg/dL Above Desirable: 130-159 mg/dL Borderline High: 160-189 mg/dL High: 190-219 mg/dL Very High: > 219 mg/dL Cholesterol, Total 148 0 - 200 mg/dL 06/13/2023 6:46 PM EST [facility] Triglycerides 240(H) 10 - 149 mg/dL 06/13/2023 6:46 PM EST [facility] HDL 42(L) 60 - 92 mg/dL 06/13/2023 6:46 PM EST [facility] Comment: LIPID PROFILE INTERPRETATION CHOLESTEROL,TOTAL(mg/dL) DESIRABLE: < 200 BORDERLINE HIGH RISK: 200 - 239 HIGH RISK(UNDESIRABLE): =/> 240 LDL CHOLESTEROL(mg/dL) OPTIMAL: < 100 NEAR HIGH OPTIMAL: 100 - 129 BORDERLINE HIGH RISK: 130 - 159 HIGH RISK: 160 - 189 VERY HIGH RISK: =/> 190 HDL CHOLESTEROL(mg/dL) HIGH RISK(UNDESIRABLE): < 40 BORDERLINE: 40 - 59 LOW RISK (DESIRABLE): => 60 TRIGLYCERIDES (mg/dL) NORMAL(DESIRABLE): < 150 BORDERLINE HIGH RISK: 150 - 199 HIGH RISK: 200 - 499 VERY HIGH RISK: =/> 500 Based on the guidlines of the National Cholesterol Education Program (NCEP). Assumes sample obtained after a 9- to 12- hour fast. LDL Cholesterol 58 mg/dL 6:46 PM EST [facility] Plasma 06/13/2023 10:5 3 AM EST 06/13/2023 6:21 PM EST Narrative [facility] - 06/13/2023 6:46 PM EST Please fax results to [phone] Must the patient be fasting for this test?->Yes Mike Millard MD LAB BLOOD ORDERABLES Final Resu lt Performing Organization Address [facility]/ZIP Co de Phone Number [facility] [address] [employer] [facility]. [address] * HIV-1 RNA, Quantitative, PCR (03/06/2023 10:11 AM EDT) HIV 1 Copies Not Detected copies/mL 03/07/2023 11:31 AM EDT [facility] Comment:Test methodology for HIV-1 RNA quantification is an FDA-approved nucleic acid amplification assay. The Lower Limit of Quantitation (LLoQ) is 20 copies/mL. The linear range is 20- to 10,000,000 copies/mL. The Limit of Detection (LoD) is 13.2 copies/mL. The reference range is Not Detected. HIV [id number] See Note [id number] /mL 03/07/2023 11:31 AM EDT [facility] Comment:HIV-1 RNA not detect ed. Plasma 03/06/2023 10:1 1 AM EDT 03/06/2023 10:50 AM EDT Narrative [facility] - 03/07/2023 11:31 AM EDT Please fax results to [phone] Mike Millard MD LAB BLOOD ORDERABLES Final Resu lt Performing Organization Address City/[facility] Hospital/ZIP Co de Phone Number [facility] [address] * Hepatitis C Antibody (02/24/2023 10:17 AM EDT) HCV Ab Nonreactive Nonreactive 02/24/2023 11:44 AM EDT [facility] Comment:Health Department no tified in accordance with reportable infectious disease guidelines. Serum 02/24/2023 10:1 7 AM EDT 02/24/2023 10:37 AM EDT Narrative [facility] - 02/24/2023 11:44 AM EDT Antibodies to HCV not detected; does not exclude the possibility of exposure to HCV. us Courtney Chase CASTING MACHINE OPERATOR LAB BLOOD ORDERABLES Final Result [facility] [address] [id number], [facility] from Last 3 Months or Most Recently Relevant to Health Maintenance Insurance MEDICARE PPO COMP Advance Directives For more information, please contact: [phone] * Full Code (Latest Code Status on File) Date Activated Date Inactivated Comments 01/01/2024 1:57 PM 01/04/2024 6:31 PM * Full Code Date Activated Date Inactivated Comments 12/07/2023 5:06 PM 12/10/2023 11:18 PM * Full Code Date Activated Date Inactivated Comments 11/03/2023 2:32 AM 11/11/2023 8:09 PM * Full Code Date Activated Date Inactivated Comments 07/05/2023 8:24 PM 07/15/2023 6:23 PM * Full Code Date Activated Date Inactivated Comments 05/13/2023 1:49 AM 05/18/2023 8:56 PM Care Teams Shuttle Hand Relationship Specialty Start Date End Date Denis Jackson MD [address] [place] [address] PCP - General Family Medicine 04/19/22 Waylon Snow, RN Registered Nurse 02/07/23
--- OUTSIDE RECORDS SUMMARY | 2025-02-07 11:54 | XMS_ITS | Encounter Summary ---
Author Organization [facility] Address [address] [place] [address] Care Team Providers Care Liquid Center Assembler Name Role Phone Denis Jackson MD Primary Care Provider [phone] Waylon Snow RN [facility] Anna angulo Source Comments This information [...] release of HIV test results or diagnoses. [id number] Encounter Details Date Type Department Care Team ([facility] st Contact Info) Description 11/05/2023 Orders Only [facility] [address] [place] [address] Henrique Garibay Social History Tobacco Use Types Packs/Day Years Used Date Smoking Tobacco: Former Cigarettes 1.5 30 1 985 - 2014 Smokeless Tobacco: Former Chew Quit: 1995 Alcohol Use Standard Drinks/Week Comments Yes 0 (1 standard drink = 0.6 oz pur e alcohol) Rarely Utilities Answer Date Recorded In the past [address] Right, gas, oil, or water company threatened to shut off services in your home? No 11/06/2023 AUDIT-C Answer Date Recorded Q1: How often do you have a drink containing alcohol? Never 11/06/2023 Q2: How many drinks containi ng alcohol do you have on a typical day when you are drinking? Patient does not drink Q3: How often do you have si x or more drinks on one occasion? Never 11/06/2023 PHQ-2 Answer Date Recorded PHQ-2 Total Score 1 04/14/2023 Hunger Vital Sign Answer Date Recorded Within the past 12 months, y ou worried that your food would run out before you got the money to buy more. Never true 11/06/19 24 Within the past 12 months, t he food you bought just didn't last and you didn't have money to get more. Never true 11/06/2023 PRAPARE - Transportation Answer Date Re corded In the past 12 months, has l ack of transportation kept you from medical appointments or from getting medications? No 10/14 In the past 12 months, has l ack of transportation kept you from meetings, work, or from getting things needed for daily living? No 11/06/2023 Housing Stability Vital Sign Answer Terence e [...] place to sleep or slept in a retirement (including now)? No 07/06/2023 Housing Stability Vital Sign Answer Terence e Recorded In the last 12 months, was t here a time when you were not able to pay the mortgage or rent on time? No 11/06/2023 In the past 12 months, how m any times have you moved where you were living? 1 11/06/2023 At any time in the past 12 m [facility], were you homeless or living in a retirement (including now)? No 11/06/2023 Yearly Questionnaire Answer Date Record ed Do [...] 02/20 Assistance needed for: Not on file Sex and Gender Information Value Date Recorded Sex Assigned at Male 04/18/2023 4:44 AM EST Legal Sex Male 3:46 PM EDT Gender Identity Male 04/18/2023 4:44 AM EST Sexual Orientation Not on file documented as of this encounter Functional Status * Audit-C Score Answer Date of Assessment Author 0 11/06/2023 6:00 PM EDT Parviz Hameed RN * Question Answer Date of Assessment Author Q1: How often do you have a drink containing alcohol? Never 11/06/2023 6:00 PM EDT Miriam Hameed RN Q2: How many drinks containing alcohol do you have on a typical day when you are drinking? Patient does not drink 11/06/2023 6:00 PM EDT Miriam Hameed RN Q3: How often do you have six or more drinks on one occasion? Never 11/06/2023 6:00 PM EDT Miriam Hameed RN documented as of this encounter Plan of Treatment Not on file documented as of this encounter Visit Diagnoses Not on filedocumented in this encounter Additional Health Concerns Assessment Noted Time PHQ-9 Depression Total Score: 5 04/14/20 23 12:00 PM EST documented as of this encounter Care Teams Liquid Center Assembler Relationship Specialty Start Date End Date Denis Jackson MD [address] [place] [address] PCP - General Family Medicine 04/19/22 Waylon Snow, RN Registered Nurse 02/07/23 documented as of this encounter
--- OUTSIDE RECORDS SUMMARY | 2025-02-07 11:54 | XMS_ITS | Encounter Summary ---
Author Organization [facility] Address [address] [id number] Care Team Providers Care Harness Repairer Name Role Phone Denis Jackson MD Primary Care Provider [phone] Waylon Snow RN [facility] Anna angulo [...] release of HIV test results or diagnoses. [id number] Health Encounter Details Date Type Department Care Team ([facility] st Contact Info) Description 10/24/2022 Chart Note [facility] at [address] [place] [phone] Krishna Murphy Social History Tobacco Use Types Packs/Day Years Used Date Smoking Tobacco: Former Cigarettes 985 - 2014 Smokeless Tobacco: Never Alcohol Use Standard Drinks/Week Comments Not Currently 0 (1 standard drink = 0.6 oz pur e alcohol) PHQ-2 Answer Date Recorded PHQ-2 Total Score 6 04/20/2022 Sex and Gender Information Value Date Recorded [...] Infection Onset Date Last Indicated Resolved Time Rule Out COVID-19 04/14/2023 04/14/2023 04/14/2023 6:17 PM EST Rule Out COVID-19 04/19/2023 04/19/2023 04/19/2023 2:58 PM EST Rule Out COVID-19 05/12/2023 05/12/2023 05/12/2023 10:59 PM EST COVID-19 05/12/2023 05/12/2023 06/01/2023 9:36 PM EST Post COVID-19 06/01/2023 06/01/2023 08/10/2023 9:3 6 PM EDT Assessment Noted Time PHQ-9 Depression Total Score: 18 022 8:00 AM EST documented as of this encounter Care Teams Harness Repairer Relationship Specialty Start Date End Date Denis Jackson MD [address] [place] [address] PCP - General Family Medicine 04/19/22 Waylon Snow, RN Registered Nurse 02/07/23 documented as of this encounter
--- OUTSIDE RECORDS SUMMARY | 2025-02-07 11:54 | XMS_ITS | Encounter Summary ---
Author Organization [facility] Address [address] [place] [address] Care Team Providers Care Senior Accounting Specialist Name Role Phone Denis Jackson MD Primary Care Provider [phone] Waylon Snow RN [facility] Anna angulo Source Comments This information has [...] release of HIV test results or diagnoses. [id number] Health Encounter Details Date Type Department Care Team ([facility] Contact Info) Description 10/03/2023 Orders Only [facility] Kidney Transplant at [place] [id number] [facility] [address] [place] [address] Austin Sanon MD [address] [place] [address] [place] [address] Kidney replaced by transplant; Immunosuppression ([facility]); Hypokalemia Social History Tobacco Use Types Packs/Day Years Used Date Smoking Tobacco: Former Cigarettes 1.5 30 1 - 2014 Smokeless Tobacco: Former Chew Quit: 1995 Alcohol Use Standard Drinks/Week Comments Yes 0 (1 standard drink = 0.6 oz pur e alcohol) Rarely Utilities Answer Date Recorded In the past 12 months has [employer], gas, oil, or water [employer] threatened to shut off services in your [...] encounter Visit Diagnoses Diagnosis Kidney replaced by transplant Immunosuppression ([facility]) Hypokalemia Hypopotassemia documented in this encounter Additional Health Concerns Assessment Noted Time PHQ-9 Depression Total Score: 5 04/14/20 23 12:00 PM EST documented as of this encounter Care Teams Senior Accounting Specialist Relationship Specialty Start Date End Date Denis Jackson MD [address] [place] [address] PCP - General Family Medicine 04/19/22 Waylon Snow, RN Registered Nurse 02/07/23 documented as of this encounter
--- OUTSIDE RECORDS SUMMARY | 2025-02-07 11:56 | XMS_ITS | Encounter Summary ---
Author Organization [facility] Address [address] [place] [address] Care Team Providers Care Concrete Saw Operator Name Role Phone Denis Jackson MD Primary Care Provider [phone] Waylon Snow RN [facility] Anna angulo Source Comments This information [...] release of HIV test results or diagnoses. [id number] Health Reason for Visit * Reason Comments Medication Refill Encounter Details Date Type Department Care Team ([facility] Contact Info) Description 12/04/2024 Refill [facility] Kidney Transplant at [facility] [address] [facility] [address] [place] [address] Lachelle Motley, SURFACE LOGGING SYSTEMS LOGGER [address] [facility] [address] [place] [address] Social History Tobacco Use Types Packs/Day Years Used Date Smoking Tobacco: Former Cigarettes 1.5 30 1 985 - 2014 Smokeless Tobacco: Former Chew Quit: 1995 Alcohol Use Standard Drinks/Week Comments Yes 0 (1 standard drink = 0.6 oz pur e alcohol) Rarely Utilities Answer Date Recorded In the past 12 months has [employer], gas, oil, or water company threatened [...] place to sleep or slept in a half-way (including now)? No 07/06/2023 Housing Stability Vital Sign Answer Terence e Recorded In the last 12 months, was t here a time when you were not able to pay the mortgage or rent on time? No 01/01/2024 In the past 12 months, how m any times have you moved where you were living? 0 01/01/2024 At any time in the past 12 m [facility], were you homeless or living in a half-way (including now)? No 01/01/2024 Yearly Questionnaire Answer [...] on file documented as of this encounter Progress Notes * Miriam Lester RN - 12/04/2024 11:19 AM EDT Refill request received. Prescription confirmed as current dose and the following were reviewed: Last appointment: 06/26/2024 Austin Sanon MD Next appointment: 12/18/2024 Austin Sanon MD Last labs: Lab Results Component Value Date CREATININE 1.46 (H) 10/21/2024 Coreg 25 mg BID Per last clinic visit with dr. Sanon on 06-26-2024: Hypertension/CVS: Improving BP Fluid overload improved on torsemide every other day. Goal <130/80 - Current meds: coreg 25 mg bid Amlodipine 5 mg daily. Losartan held during last 10/2023 On Ozempic per PCP for DM Plan: -Low salt diet. -Follow up CsA trough level. Goal 100-125 -Continue MMF 250 mg bid -Aldactone 25 mg daily. Stop torsemide and KCL -repeat renal panel in 2 weeks to monitor potassium level. - Follow Hepatitis panel documented in this encounter Plan of Treatment Not on file documented as of this encounter Visit Diagnoses Not on filedocumented in this encounter Additional Health Concerns Assessment Noted Time PHQ-9 Depression Total Score: 5 04/14/20 23 12:00 PM EST documented as of this encounter Care Teams Concrete Saw Operator Relationship Specialty Start Date End Date Denis Jackson MD [address] [place] [address] PCP - General Family Medicine 04/19/22 Waylon Snow, RN Registered Nurse 02/07/23 documented as of this encounter
--- OUTSIDE RECORDS SUMMARY | 2025-02-07 11:57 | XMS_ITS | Encounter Summary ---
Author Organization [facility] Address [address] [place] [address] Phone Care Team Providers Care Group Segment Consultant Name Role Phone Pcp, Owen ABDULLAHI Primary Care Provider [phone] Encounter Details Date Type Department Care Team ([facility] st Contact Info) Description 01/27/2021 Discharge Call Center Patient Call Center [address] [place] [address] Social History Tobacco Use Types Packs/Day Years Used Date Smoking Tobacco: Never Assessed Sex and Gender Information Value Date Recorded Sex Assigned at Not on file Legal Sex Male 12:45 PM EDT Gender Identity Male 01/23/2021 3:26 AM EDT Sexual Orientation Not on file COVID-19 Exposure Response Date Recorded In the last month, have you been in contact with someone who was confirmed or suspected to have Coronavirus / COVID-19? Unable to assess 01/26/2021 9:01 AM EDT documented as of this encounter Plan of Treatment Not on file documented as of this encounter Visit Diagnoses Not on filedocumented in this encounter Care Teams Group Segment Consultant Relationship Specialty Start Date End Date Pcp, MD Owen PCP - General Internal Medicine 01/22/21 documented as of this encounter
--- OUTSIDE RECORDS SUMMARY | 2025-02-07 11:57 | XMS_ITS | Encounter Summary ---
Author Organization [facility] Address [address] [place] [address] Care Team Providers Care Demolition Hammer Operator Name Role Phone Denis Jackson MD Primary Care Provider [phone] Waylon Snow RN [facility] Anna angulo Source Comments This information [...] release of HIV test results or diagnoses. [id number] Health Encounter Details Date Type Department Care Team ([facility] st Contact Info) Description 06/24/[address] [address] Sharmaine Leslie DMD [address] [place] [address] Social History Tobacco Use Types Packs/Day Years Used Date Smoking Tobacco: Former Cigarettes 30 1 5 - 2014 Smokeless Tobacco: Never Alcohol Use [...] documented as of this encounter Care Teams Demolition Hammer Operator Relationship Specialty Start Date End Date Denis Jackson MD [address] [place] [address] PCP - General Family Medicine 04/19/22 Waylon Snow, RN Registered Nurse 02/07/23 documented as of this encounter
--- OUTSIDE RECORDS SUMMARY | 2025-02-07 11:57 | XMS_ITS | Encounter Summary ---
Author Organization [facility] Address [address] [place] [address] Care Team Providers Care Excelsior Machine Tender Name Role Phone Denis Jackson MD Primary Care Provider [phone] Waylon Snow RN [facility] Anna angulo Source Comments This information [...] release of HIV test results or diagnoses. [id number] Health Encounter Details Date Type Department Care Team (Latest Contact Info) Description 12/13/2024 Results Follow-Up [facility] [address] [address] Courtney Chase, JOB INTERVIEWER [address] [place] [address] Hepatitis B Virus (HBV), PCR, Quant, Hepatitis B surface antigen, Hepatitis B Surface Antibody, Quantitati, Hepatic Function Panel, Serum Social History Tobacco Use Types Packs/Day Years Used Date Smoking Tobacco: Former Cigarettes 1.5 30 1 2014 Smokeless Tobacco: Former Chew Quit: 1995 Alcohol Use Standard Drinks/Week Comments Yes 0 (1 standard drink = 0.6 oz pur e alcohol) Rarely Utilities Answer Date Recorded In the past 12 months has [employer], gas, oil, or water company threatened to [...] any time in the past 12 m [facility], were you homeless or living in a chcf (including now)? No 01/01/2024 Yearly Questionnaire Answer Date Record ed Do you need any assistance w ith obtaining housing, meals, medication, transportation or medical equipment? No 08/20 Assistance needed for: Not on file 04/08/202 5 Yearly Questionnaire Answer Date Record ed [...] documented as of this encounter Care Teams Excelsior Machine Tender Relationship Specialty Start Date End Date Denis Jackson MD [address] [place] [address] PCP - General Family Medicine 04/19/22 Waylon Snow, RN Registered Nurse 02/07/23 documented as of this encounter
--- OUTSIDE RECORDS SUMMARY | 2025-02-07 11:57 | XMS_ITS | Encounter Summary ---
Author Organization [facility] Address [address] [place] [address] Care Team Providers Care Stonemason Name Role Phone Denis Jackson MD Primary Care Provider [phone] Waylon Snow RN [facility] [...] release of HIV test results or diagnoses. [id number] Health Reason for Visit * Reason Comments Orders Order Clarification Request Encounter Details Date Type Department Care Team ([facility] Contact Info) Description 12/12/[address] [facility] Neurosurgery at [facility] [address] [facility] [address] [place] [address] Albert Kuo MD [address] [facility] [address] [place] [address] Orders (Order Clarification Request ) Social History Tobacco Use Types Packs/Day Years Used Date Smoking Tobacco: Former Cigarettes 1.5 30 1 - 2014 Smokeless Tobacco: Former Chew Quit: 1995 Alcohol Use Standard Drinks/Week Comments Yes 0 (1 standard drink = 0.6 oz pur e alcohol) Rarely Utilities Answer Date Recorded In the past 12 months has [employer] electric, gas, oil, or water company threatened [...] place to sleep or slept in a fdc (including now)? No 07/06/2023 Housing Stability Vital Sign Answer Terence e Recorded In the last 12 months, was t here a time when you were not able to pay the mortgage or rent on time? No 01/01/2024 In the past 12 months, how m any times have you moved where you were living? 0 01/01/2024 At any time in the past 12 m [facility], were you homeless or living in a fdc (including now)? No 01/01/2024 Yearly Questionnaire Answer [...] on file documented as of this encounter Miscellaneous Notes * Telephone Encounter - Rose Mary Jane MA - 12/13/2024 12:28 PM EDT Call to patient to let him know that was for his surgery he did in 2023 and not to worry about it. Patient verbalized understanding. * Telephone Encounter - Zayda Schwarz - 12/12/2024 1:41 PM EDT Pt called in and stated that he sees an order from for an ECG. 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 Informed pt that it was put in December of 2023.Pt would like clarification because he said he doesn't understand why it was there in the first place. Requesting a call back. Please advise. [phone] documented in this encounter Plan of Treatment Not on file documented as of this encounter Visit Diagnoses Not on filedocumented in this encounter Additional Health Concerns Assessment Noted Time PHQ-9 Depression Total Score: 5 04/14/20 23 12:00 PM EST documented as of this encounter Care Teams Stonemason Relationship Specialty Start Date End Date Denis Jackson MD [address] [place] [address] PCP - General Family Medicine 04/19/22 Waylon Snow, RN Registered Nurse 02/07/23 documented as of this encounter
--- OUTSIDE RECORDS SUMMARY | 2025-02-07 11:57 | XMS_ITS | Encounter Summary ---
Author Organization [facility] Address [address] [place] [address] Care Team Providers Care Racking Machine Operator Name Role Phone Denis Jackson MD Primary Care Provider [phone] Waylon Snow RN [facility] Anna angulo [...] release of HIV test results or diagnoses. [id number] Health Encounter Details Date Type Department Care Team ([facility] st Contact Info) Description 12/18/2024 Chart Note [facility] Kidney Transplant at [address] [place] [phone] Patricia Kaufman MA Lab work 12/10/24 Social History Tobacco Use Types Packs/Day Years Used Date Smoking Tobacco: Former Cigarettes 1.5 30 1 - 2014 Smokeless Tobacco: Former Chew Quit: 1995 Alcohol Use Standard Drinks/Week Comments Yes 0 (1 standard drink = 0.6 oz pur e alcohol) Rarely Utilities Answer Date Recorded In the past 12 months has [employer], gas, oil, or water [employer] threatened to shut off services in your [...] time in the past 12 m [facility], were you homeless or living in [...] as of this encounter Progress Notes * Patricia Kaufman MA - 12/18/2024 8:01 AM EDT Lab work 12/10/24 documented in this encounter Plan of Treatment Not on file documented as of this encounter Visit Diagnoses Not on filedocumented in this encounter Additional Health Concerns Assessment Noted Time PHQ-9 Depression Total Score: 5 04/14/20 23 12:00 PM EST documented as of this encounter Care Teams Racking Machine Operator Relationship Specialty Start Date End Date Denis Jackson MD [address] [place] [address] PCP - General Family Medicine 04/19/22 Waylon Snow, RN Registered Nurse 02/07/23 documented as of this encounter
--- OUTSIDE RECORDS SUMMARY | 2025-02-07 11:57 | XMS_ITS | Encounter Summary ---
Author Organization [facility] Address [address] [place] [address] Care Team Providers Care Battery Assembler Name Role Phone Denis Jackson MD Primary Care Provider [phone] Waylon Snow RN [facility] Anna [...] release of HIV test results or diagnoses. [id number] Health Encounter Details Date Type Department Care Team ([facility] st Contact Info) Description 06/28/[address] [address] Sharmaine Leslie DMD [address] [place] [address] Social History Tobacco Use Types Packs/Day Years [...] documented as of this encounter Care Teams Battery Assembler Relationship Specialty Start Date End Date Denis Jackson MD [address] [place] [address] PCP - General Family Medicine 04/19/22 Waylon Snow, RN Registered Nurse 02/07/23 documented as of this encounter
--- OUTSIDE RECORDS SUMMARY | 2025-02-07 11:57 | XMS_ITS | Clinical Summary ---
Author Organization [facility] Address [address] [place] [address] Care Team Providers Care Delivery Representative Name Role Phone Pcp, None MD Primary Care Provider [phone] Allergies Active Allergy Reactions Criticality Noted Date Comments Codeine GI Upset 01/22/2021 Medications cetirizine (ZYRTEC) 10 MG TABS Take 10 mg by mouth every morning. Active amLODIPine (NORVASC) 10 MG TABS Take 1 tablet by mouth daily. 30 tablet 01/27/2021 Active carvedilol (COREG) 12.5 MG TABS Take 1 tablet by mouth 2 (two) times daily with meals. 60 tablet 01/26/2021 Active torsemide (DEMADEX) 100 MG TABS Take 0.5 tablets by mouth daily. 30 tablet 01/26/2021 Active Active Problems Problem Noted Date Diagnosed Date MAISHA (acute kidney injury) 01/22/2021 Essential hypertension 01/22/2021 Acute exacerbation of CHF (congestive heart fail ure) 01/22/2021 Elevated troponin 01/22/2021 Social History Tobacco Use Types Packs/Day Years Used Date Smoking Tobacco: Never Assessed Food Insecurities Answer Date Recorded Worried about running out of food Not on file 06/04/2023 Food Bought Not on file 06/04/2023 Housing/Utilities Answer Date Recorded Worried about losing home Not on file 2023 Stayed outside house Not on file 06/04/2023 Unable to get utilities Not on file 06/04/19 Interpersonal Safety Answer Date Record ed Feel physically or emotionally unsafe where curr ently live Not on file 06/04/2023 Harm by anyone Not on file 06/04/2023 Emotionally Harmed Not on file 06/04/2023 Transportation Answer Date Recorded Worried about transportation Not on file Utilities Answer Date Recorded Worried about losing home Not on file 2023 Stayed outside house Not on file 09/18/2023 Unable to get utilities Not on file 09/18/19 Sex and Gender Information Value Date Recorded Sex Assigned at Not on file Legal Sex Male 12:45 PM EDT Gender Identity Male 01/23/2021 3:26 AM EDT Sexual Orientation Not on file Last Filed Vital Signs Vital Sign Reading Time Taken Comments Blood Pressure 126/90 01/26/2021 1:55 PM EDT Pulse 81 01/26/2021 1:55 PM EDT Temperature 36.1 C (96.9 F) 01/26/2021 11:36 AM EDT Respiratory Rate 16 01/26/2021 11:36 AM EDT Oxygen Saturation 98% 01/26/2021 1:55 PM EDT Inhaled Oxygen Concentration - - Weight 90.4 kg (199 lb 4.8 oz) 01/26/2021 5:24 A M EDT Height 175.3 cm (5' 9 ) 01/22/2021 2:22 PM EDT Body Mass Index 29.43 01/22/2021 2:22 PM EDT Plan of Treatment Health Maintenance Due Date Last Done Comments DTap,Tdap,and Td (1 - Tdap) 1976 Pneumococcal 50+ (1 of 2 - PCV) 1984 Colonoscopy 2010 PSA YEARLY 09/20/2015 Shingrix (#1) 09/20/2015 Influenza Vaccine (#1) 2025 03/27/2023 RSV Vaccine (60+ or ) (1 - 1-dose 75+ series) 2040 HPV Aged Out No longer eligi ble based on patient's age to complete this topic Meningococcal conjugate jaye nt 4 (MCV4) Aged Out No longer eligible b ased on patient's age to complete this topic RSV Immunization (<20 months) Aged Out No longer eligible based on patient's age to complete this topic Insurance [facility] AD[facility] [place]# [id number] Advance Directives * Full Code (Latest Code Status on File) Date Activated Date Inactivated Comments 01/23/2021 1:32 AM 01/26/2021 4:08 PM * Full Code Date Activated Date Inactivated Comments 01/23/2021 1:32 AM 01/23/2021 1:32 AM Care Teams Delivery Representative Relationship Specialty Start Date End Date Pcp, Owen, PCP - General Internal Medicine 01/22/21
--- OUTSIDE RECORDS SUMMARY | 2025-02-07 11:57 | XMS_ITS | Encounter Summary ---
Author Organization [facility] Address [address] [place] [address] Care Team Providers Care Network Controller Name Role Phone Denis Jackson MD Primary Care Provider [phone] Waylon Snow RN [facility] Anna angulo Source Comments This information [...] release of HIV test results or diagnoses. [id number] Health Reason for Visit * Reason Comments Medication Refill Encounter Details Date Type [facility] Description 12/20/2024 Refill [facility] Kidney Transplant at [address] [address] Austin Sanon MD [address] [place] [address] [place] [address] Social History Tobacco Use Types Packs/Day Years Used Date Smoking Tobacco: Former Cigarettes 1.5 30 1 - 2014 Smokeless Tobacco: Former Chew Quit: 1995 Alcohol Use Standard Drinks/Week Comments Yes 0 (1 standard drink = 0.6 oz pur e alcohol) Rarely Utilities Answer Date Recorded In the past 12 months has [employer], gas, oil, or water company threatened to [...] place to sleep or slept in a detention (including now)? No 07/06/2023 Housing Stability Vital Sign Answer Terence e Recorded In the last 12 months, was t here a time when you were not able to pay the mortgage or rent on time? No 01/01/2024 In the past 12 months, how m any times have you moved where you were living? 0 01/01/2024 At any time in the past 12 m [facility], were you homeless or living in a detention (including now)? No 01/01/2024 Yearly Questionnaire Answer [...] as of this encounter Progress Notes * Cristina Duff RN - 12/20/2024 1:40 PM EDT Refill request received. Prescription confirmed as current dose and the following were reviewed: Last appointment: 12/18/2024 Austin Sanon MD Next appointment: 06/18/2025 Austin Sanon MD Last labs: Lab Results Component Value Date CREATININE 1.32 (H) 12/10/2024 Med: fluticasone Dose: 50 mcg Instructions:USE 1 SPRAY INTO EACH NOSTRIL DAILY. documented in this encounter Plan of Treatment Not on file documented as of this encounter Visit Diagnoses Not on filedocumented in this encounter Additional Health Concerns Assessment Noted Time PHQ-9 Depression Total Score: 5 04/14/20 23 12:00 PM EST documented as of this encounter Care Teams Network Controller Relationship Specialty Start Date End Date Denis Jackson MD [address] [place] [address] PCP - General Family Medicine 04/19/22 Waylon Snow, RN Registered Nurse 02/07/23 documented as of this encounter
--- OUTSIDE RECORDS SUMMARY | 2025-02-07 11:57 | XMS_ITS | Clinical Summary ---
Author Organization [facility] Address [address] [facility] [address] [place] [address] Phone Care Team Providers Care Sanitary Napkin Machine Tender Name Role Phone Denis Jackson MD Primary Care Provider [phone] Allergies Active Allergy Reactions Criticality Noted Date Comments Codeine Nausea Only 02/09/2021 Medications amLODIPine (NORVASC) 10 mg Oral Tablet Take 10 mg by mouth daily. Active carvediloL (COREG) 12.5 mg Oral Tablet Take 12.5 mg by mouth 2 times daily. Active torsemide (DEMADEX) 100 mg Oral Tablet Take 100 mg by mouth daily. Take 0.5 tablets by mouth daily. Active calcitRIOL (ROCALTROL) 0.25 mcg Oral Capsule Take 1 Capsule by mouth daily. 90 Capsule 3 1 Active Additional Information Patient not taking.Reason: Therapy Completed, Reported on 03/08/2023 loratadine (CLARITIN) 10 mg Oral Tablet Take 10 mg by mouth daily. Active CALCIUM CARBONATE, BULK, MISC 1,000 mg by Misc.(Non-Drug; Combo Route) route 3 times daily (with meals). Active pantoprazole (PROTONIX) 40 mg Oral Tablet, Delayed Release (E.C.) Take 40 mg by mouth every morning. 3 Active VELPHORO 500 mg Oral Tablet, Chewable CHEW AND SWALLOW 1 TABLET BY MOUTH THREE TIMES DAILY WITH MEALS Active carvediloL (COREG) 25 mg Oral Tablet Take 25 mg by mouth 2 times daily. 3 Active acetaminophen 325 mg Oral Tab Take 975 mg by mouth. 3 Active insulin lispro (HUMALOG) 100 unit/mL SubQ Insulin Pen Subcutaneous (Inject under the skin) 0-6 Units. 3 Active magnesium oxide (MAG-OX) 400 mg (241.3 mg magnesium) Oral Tablet Take 400 mg by mouth. 3 Active mycophenolate (CELLCEPT) 250 mg Oral Capsule Take 1,000 mg by mouth. 3 Active potassium chloride (KLOR-CON M) 20 mEq Oral Tab Sust.Rel. Particle/Sophia l Take 20 mEq by mouth daily. 3 Active sulfamethoxazol e-trimethoprim (BACTRIM;SEPTRA ) 400-80 mg Oral Tablet Take 1 Tablet by mouth daily. 3 Active tacrolimus (PROGRAF) 1 mg Oral Capsule Take 4 mg by mouth. 3 Active tenofovir alafenamide 25 mg Oral Tablet Take 25 mg by mouth daily. 3 Active valGANciclovir (VALCYTE) 450 mg Oral Tablet Take 900 mg by mouth daily. 3 Active Active Problems Problem Noted Date Diagnosed Date ESRD (end stage renal disease) 03/12/2021 MAISHA (acute kidney injury) 01/22/2021 Elevated troponin 01/22/2021 Essential hypertension 01/22/2021 Acute exacerbation of CHF (congestive heart fail ure) 01/22/2021 Surgical History Surgery Date Site/Laterality Comments KNEE CARTILAGE SURGERY 05/15/1994 - 05/14/1995 right knee KNEE SURGERY DENTAL SURGERY DIALYSIS ACCESS/SHUNT 04/13/2021 Right laparoscopic insertion of peritoneal dialysis catheter; Surgeon: Fredrick Abbasi MD; Location: ED MAIN OR; Service: Vascular Medical devices from this surgery are in the Medical Devices section. DIALYSIS ACCESS/SHUNT 04/13/2021 Right Surgeon: Fredrick Abbasi MD; Location: ED MAIN OR; Service: Vascular Medical devices from this surgery are in the Medical Devices section. Medical History Medical History Date Comments Allergy Anxiety CHF (congestive heart failure) (HCC) Hypertension Chronic kidney disease Thyroid disease nodules Sleep apnea CPAP Heart attack (HCC) 01/22/21 Headache Cancer (HCC) squamous cell sk in Motion sickness Family History Medical History Relation Name Comments High Blood Pressure Brother Kidney Disease Brother Heart Disease Father High Blood Pressure Father Glaucoma Maternal Grandmother Arthritis Mother Diabetes Mother Heart Disease Mother Osteoporosis Mother Relation Name Status Comments Brother Alive Father Maternal Grandmother Mother Alive Social History Tobacco Use Types Packs/Day Years Used Date Smoking Tobacco: Former Cigarettes 1.5 30 1 5 - 2014 Smokeless Tobacco: Never Tobacco Cessation:Counseling Given: Not Answered Alcohol Use Standard Drinks/Week Comments Never 0 (1 standard drink = 0.6 oz pur e alcohol) rarely Sexually Active Control Partners Comments Yes Female Sex and Gender Information Value Date Recorded Sex Assigned at Not on file Legal Sex Male 11:21 AM EDT Gender Identity Not on file Sexual Orientation Not on file Obstetrics History Last Filed Vital Signs Vital Sign Reading Time Taken Comments Blood Pressure 133/80 04/13/2021 2:00 PM EST Pulse 68 04/13/2021 2:00 PM EST Temperature 36.1 C (97 F) 04/13/2021 12:52 PM EST Respiratory Rate 20 04/13/2021 2:00 PM EST Oxygen Saturation 95% 04/13/2021 2:00 PM EST Inhaled Oxygen Concentration - - Weight 97.5 kg (215 lb) 03/08/2023 11:34 AM EDT Height 175.3 cm (5' 9 ) 03/08/2023 11:34 AM EDT Body Mass Index 31.75 03/08/2023 11:34 AM EDT Plan of Treatment Health Maintenance Due Date Last Done Comments Wellness Exam Medicare 1968 DTaP/TDaP/Td (1 - Tdap) 1984 Pneumococcal Vaccine 50+ (1 of 2 - PCV) 1984 Zoster (1 of 2) 1984 Cologuard 2010 Colon Cancer Screening 2010 Colonoscopy 2010 FIT 2010 Sigmoidoscopy 2010 Virtual Colonography 2010 Low Dose Lung Cancer Screening 09/20/2015 Hepatitis B Vaccine (2 of 2 - CpG 2-dose series) 08/12/2021 07/15/2021 COVID-19 Vaccine (2 - Modern a risk series) 02/24/2022 01/27/2022 Influenza Vaccine (#1) 2025 3, 05/17/2021 Meningococcal B Vaccine Aged Out No l onger eligible based on patient's age to complete this topic Medical Devices Implanted Type [facility] Insurance Clerk Device Identifier Shelf Expiration Date Model / Serial / Lot Cath Pd [id number] Lia Curl [id number] [place] [employer] Cyndy - [id number] Implanted:Qty : 1 on 04/13/2021 by Fredrick Abbasi MD at [facility] N/A: Abdomen COVIDIEN:MILVIA 09/20/2025 [id number] / / Insurance MEDICARE [place] PART A AND B [place]ICARE [place] B MEDICARE COMPLETE AARP MR [id number] [id number] Care Teams Sanitary Napkin Machine Tender Relationship Specialty Start Date End Date Denis Jackson MD PCP - General Family Medicine 02/09/21
--- OUTSIDE RECORDS SUMMARY | 2025-02-07 11:57 | XMS_ITS | Encounter Summary ---
Author Organization [facility] Address [address] [id number] Care Team Providers Care End Packer Name Role Phone Kody Mckinney MD Unavailable [phone] Denis Jackson MD Primary Care Provider [phone] Encounter Details Date Type Department Care Team (Late st Contact Info) Description 07/12/2021 [facility] [address] [place] [address] Denis Jackson MD [address] [place] [address] Mass of cecum (Primary Dx) Social History Tobacco Use Types Packs/Day Years Used Date Smoking Tobacco: Former Cigarettes 1.5 25.5 0 05/15/1989 - 10/27/2014 Cigars Smokeless Tobacco: Former Chew Quit: 05/15/1995 Alcohol Use Standard Drinks/Week Comments Not Currently 1 (1 standard drink = 0.6 oz pur e alcohol) Very seldom Sex and Gender Information Value Date Recorded Sex Assigned at Not on file Legal Sex Male 9:12 AM EST Gender Identity Not on file Sexual Orientation Straight 05/26/2021 9: 56 AM EST COVID-19 Exposure Response Date Recorded In the last month, have you been in contact with someone who was confirmed or suspected to have Coronavirus / COVID-19? No / Unsure 06/21/2021 9:25 AM EST documented as of this encounter Plan of Treatment Not on file documented as of this encounter Visit Diagnoses Diagnosis Mass of cecum- Primary Unspecified disorder of intestine documented in this encounter Additional Health Concerns Assessment Noted Time A fall risk assessment has been complete d for the patient 05/27/2021 7:46 AM EST documented as of this encounter Care Teams End Packer Relationship Specialty Start Date End Date Denis Jackson MD [address] [place] [address] PCP - General 05/19/21 Kody Mckinney MD [address] [place] [address] Referring Physician 05/18/21 documented as of this encounter
[2025-02-07 14:12] LABS: CEA 3.4 ng/mL (0.0-4.7)
== END 2025-02-05 23:59 | disposition home or self-care (01) ==
LOC: LAB.DROPOF 02-07 11:52
PROVIDERS: PCP Family Medicine; Visit Provider Family Medicine
DX: Z11.59 Encounter for screening for other viral diseases (principal); Z85.038 Personal history of other malignant neoplasm of large intestine
CPT/HCPCS: 82378; 86803; 87340; 87389